=== PATIENT | female | born 1985 | race Caucasian/White ===

== ENCOUNTER 2018-06-25 14:05 | Emergency (ER) | payer OTHER, SELFPAY ==
[2018-06-25 14:12] VITALS: BP 113/71; PULSE 89; RESP 18; O2SAT 100
--- NOTE | 2018-06-25 14:21 | ED.NAVMDI ---
HPI - Nausea/Vomiting/Diarrhea <LATOSHA Mathew - Last Filed: 06/25/18 22:19> General Chief complaint: Nausea/Vomiting/Diarrhea Stated complaint: VOMITING/FEVER/7 WEEKS PREG Time Seen by Provider: 06/25/18 14:18 Source: patient Mode of arrival: ambulatory Limitations: no limitations History of Present Illness HPI Narrative: Patient presents with chief complaint of a fever 2 nights ago, nausea that comes and goes, vomiting twice yesterday, and lots of diarrhea today. She states she has had about 8 episodes of watery diarrhea. She complains of some abdominal pain and cramping. She denies any dysuria, urgency or frequency. She denies any vaginal spotting. She has yet to see an Ob this . She states her fever was 101 two nights ago. She has not taken anything to feel better at home. She denies any cough, congestion, or any other acute complaints. Related Data Home Medications Medication Instructions Recorded Confirmed PNV cmb#95-ferrous fumarate-FA 1 tab PO QPM 06/25/18 06/25/18 [] Allergies Allergy/AdvReac Type Severity Reaction Status Date / Time amoxicillin Allergy Verified 06/25/18 16:53 Review of Systems <CONRAD Mathew - Last Filed: 06/25/18 22:19> Review of Systems GENERAL: See HPI HEENT: Denies sinus pain, ear pain, sore throat, difficulty swallowing, dizziness. RESPIRATORY: Denies dyspnea, cough, wheezing, hemoptysis, sputum. CARDIOVASCULAR: Denies chest pain, palpitations, orthopnea, edema, GASTROINTESTINAL: See HPI : Denies dysuria, frequency, incontinence, hematuria, urinary retention. MUSCULOSKELETAL: denies weakness, joint pain, or bony pain SKIN: Denies rash, skin lesions, or other NEUROLOGIC: Denies weakness, headache, numbness, change in speech, confusion, seizures, incoordination. PSYCHIATRIC: No concerning psychosocial issues. 12 point review of systems is negative except for those stated above Exam <LATOSHA Mathew - Last Filed: 06/25/18 22:19> Narrative Exam Narrative: GENERAL: This is a well-nourished, well-developed patient, in no acute distress. HEAD: Atraumatic. Normocephalic. No temporal or scalp tenderness. EYES: Pupils equal round and reactive. Extraocular motions intact. No scleral icterus. No injection or drainage. ENT: Nose without bleeding, purulent drainage or septal hematoma. Throat without erythema, tonsillar hypertrophy or exudate. Uvula midline. Airway patent. NECK: Trachea midline. No JVD or lymphadenopathy. Supple, nontender, no meningeal signs. CARDIOVASCULAR: Regular rate and rhythm without murmurs, gallops, or rubs. RESPIRATORY: Clear to auscultation. Breath sounds equal bilaterally. No wheezes, rales, or rhonchi. No cough on exam. GASTROINTESTINAL: Abdomen soft, diffusely tender to palpation. No distention, no guarding noted. Active bowel sounds all 4 quadrants. EXTREMITIES: No clubbing, cyanosis, or edema. No joint tenderness, effusion, or edema noted. BACK: Nontender without deformity or crepitance. No flank tenderness. NEURO: AOx3. SKIN: No rash or erythema. Initial Vital Signs Initial Vital Signs: Vital Signs Pulse Rate 89 06/25/18 14:12 Respiratory Rate 18 06/25/18 14:12 Blood Pressure 113/71 06/25/18 14:12 Pulse Oximetry 100 06/25/18 14:12 <Bernabe Goff MD - Last Filed: 06/29/18 08:20> Initial Vital Signs Initial Vital Signs: Vital Signs Pulse Rate 89 06/25/18 14:12 Respiratory Rate 18 06/25/18 14:12 Blood Pressure 113/71 06/25/18 14:12 Pulse Oximetry 100 06/25/18 14:12 Course <LATOSHA Mathew - Last Filed: 06/25/18 22:19> Orders Ordered: Discontinued Medications Sodium Chloride (Normal Saline 0.9%) 1,000 mls @ 1,000 mls/hr IV BOLUS ONE Stop: 06/25/18 15:30 Last Infusion: 06/25/18 17:14 Dose: 0 mls/hr Admin: 06/25/18 14:54 Dose: 1,000 mls/hr Sodium Chloride (Normal Saline 0.9%) 1,000 mls @ 1,000 mls/hr IV BOLUS ONE Stop: 06/25/18 18:39 Last Infusion: 06/25/18 19:13 Dose: 0 mls/hr Admin: 06/25/18 17:44 Dose: 1,000 mls/hr Vital Signs - 8 hr 06/25/18 14:48 06/25/18 15:40 06/25/18 16:51 Temperature 98.0 F Pulse Rate 75 77 Respiratory Rate 14 15 Blood Pressure Blood Pressure [Right Arm] 98/58 L 108/57 L Pulse Oximetry 100 100 06/25/18 19:37 Temperature Pulse Rate 80 Respiratory Rate 16 Blood Pressure 108/56 L Blood Pressure [Right Arm] Pulse Oximetry 100 <Bernabe Goff MD - Last Filed: 06/29/18 08:20> Orders Ordered: Discontinued Medications Sodium Chloride (Normal Saline 0.9%) 1,000 mls @ 1,000 mls/hr IV BOLUS ONE Stop: 06/25/18 15:30 Last Infusion: 06/25/18 17:14 Dose: 0 mls/hr Admin: 06/25/18 14:54 Dose: 1,000 mls/hr Sodium Chloride (Normal Saline 0.9%) 1,000 mls @ 1,000 mls/hr IV BOLUS ONE Stop: 06/25/18 18:39 Last Infusion: 06/25/18 19:13 Dose: 0 mls/hr Admin: 06/25/18 17:44 Dose: 1,000 mls/hr Vital Signs - 8 hr 06/25/18 14:48 06/25/18 15:40 06/25/18 16:51 Temperature 98.0 F Pulse Rate 75 77 Respiratory Rate 14 15 Blood Pressure Blood Pressure [Right Arm] 98/58 L 108/57 L Pulse Oximetry 100 100 06/25/18 19:37 Temperature Pulse Rate 80 Respiratory Rate 16 Blood Pressure 108/56 L Blood Pressure [Right Arm] Pulse Oximetry 100 MDM - Nausea/Vomiting/Diarrhea <LATOSHA Mathew - Last Filed: 06/25/18 22:19> Lab Data Attestation: I reviewed the patient's lab results. Result diagrams: 06/25/18 14:40 06/25/18 14:40 Lab Results 06/25/18 06/25/18 06/25/18 Range/Units 14:17 14:17 14:40 WBC 6.8 (4.5-11.0) X10^3/uL RBC 4.72 (4.0-5.2) X10^6/uL Hgb 14.3 (12.0-16.0) g/dL Hct 42.9 (36-46) % MCV 91.0 (80-100) fL MCH 30.4 (26-34) PG MCHC 33.4 (30-36) % RDW 12.6 (11.6-14.8) % Plt Count 198 (150-400) X10^3/uL Neut % (Auto) 79.6 H (50-75) % Lymph % (Auto) 13.6 L (25-40) % Hall % (Auto) 6.1 (3-14) % Eos % (Auto) 0.5 L (2-4) % Baso % (Auto) 0.2 (0-2) % Neut # (Auto) 5400 (8996-0236) /uL Sodium (137-145) mmol/L Potassium (3.4-5.1) mmol/L Chloride (98-107) mmol/L Carbon Dioxide (22-32) mmol/L BUN (7-17) mg/dL Creatinine (0.52-1.04) mg/dL Estimated GFR (>60) mL/min BUN/Creatinine Ratio (6-22) Glucose (70-100) mg/dL Calcium (8.4-10.2) mg/dL Total Bilirubin (0.2-1.3) mg/dL AST (14-36) IU/L ALT (9-52) IU/L Alkaline Phosphatase (38-126) U/L Total Protein (6.3-8.2) g/dL Albumin (3.5-5.0) g/dL Globulin (1.7-4.1) g/dL Albumin/Globulin Ratio (1.0-2.8) Lipase (23-300) U/L HCG, Quant mIU/mL Urine Color Urine Appearance Urine pH (4.5-8.0) Ur Specific [place] (1.000-1.035) Urine Protein (Negative) Urine Glucose (UA) (Normal) g/dL Urine Ketones (NEGATIVE) Urine Occult Blood (Negative) Urine Nitrate (Negative) Urine Bilirubin (NEGATIVE) Urine Ictotest Negative (Negative) Urine Urobilinogen (0.2) E.U./dL Ur Leukocyte Esterase (NEGATIVE) Urine RBC None seen (0-5/HPF) Urine WBC 1-5/hpf (0-5/HPF) Ur Squamous Epith Cells 10-30 /hpf H Urine Bacteria Many (>30) H (None) Urine Mucus 1+ H (Negative) Ur Culture Indicated? Cult not indicated Micro UA Comment Not Reportable 06/25/18 06/25/18 Range/Units 14:40 Unknown WBC (4.5-11.0) X10^3/uL RBC (4.0-5.2) X10^6/uL Hgb (12.0-16.0) g/dL Hct (36-46) % MCV (80-100) fL MCH (26-34) PG MCHC (30-36) % RDW (11.6-14.8) % Plt Count (150-400) X10^3/uL Neut % (Auto) (50-75) % Lymph % (Auto) (25-40) % Hall % (Auto) (3-14) % Eos % (Auto) (2-4) % Baso % (Auto) (0-2) % Neut # (Auto) (0683-3292) /uL Sodium 138 (137-145) mmol/L Potassium 3.9 (3.4-5.1) mmol/L Chloride 105 (98-107) mmol/L Carbon Dioxide 23 (22-32) mmol/L BUN 9 (7-17) mg/dL Creatinine 0.80 (0.52-1.04) mg/dL Estimated GFR > 60.0 (>60) mL/min BUN/Creatinine Ratio 11.3 (6-22) Glucose 87 (70-100) mg/dL Calcium 8.6 (8.4-10.2) mg/dL Total Bilirubin 0.3 (0.2-1.3) mg/dL AST 20 (14-36) IU/L ALT 20 (9-52) IU/L Alkaline Phosphatase 63 (38-126) U/L Total Protein 7.2 (6.3-8.2) g/dL Albumin 4.3 (3.5-5.0) g/dL Globulin 2.9 (1.7-4.1) g/dL Albumin/Globulin Ratio 1.5 (1.0-2.8) Lipase 112 (23-300) U/L HCG, Quant 734.73 mIU/mL Urine Color Yellow Urine Appearance Clear Urine pH 5.0 (4.5-8.0) Ur Specific [place] >=1.030 H (1.000-1.035) Urine Protein Negative (Negative) Urine Glucose (UA) Negative (Normal) g/dL Urine Ketones 2+ H (NEGATIVE) Urine Occult Blood Trace-lysed (Negative) Urine Nitrate Negative (Negative) Urine Bilirubin Negative (NEGATIVE) Urine Ictotest (Negative) Urine Urobilinogen 0.2 (0.2) E.U./dL Ur Leukocyte Esterase Negative (NEGATIVE) Urine RBC 0-1/hpf (0-5/HPF) Urine WBC 0-1/hpf (0-5/HPF) Ur Squamous Epith Cells 1-5 /hpf D Urine Bacteria None seen (None) Urine Mucus (Negative) Ur Culture Indicated? Cult not indicated Micro UA Comment Not Reportable Imaging Data US: Radiologist's impression: [address] [address] Ultrasound Report Signed Patient: Elina Perea MR#: [id number] : 1985 Acct:[id number] Age/Sex: 32 / Date of Service: 06/25/18 Loc: ED Accession Number: [id number] Procedure: US OB <= 14 weeks fetus Ordering Provider: Elinor Chaudhry- PROCEDURE: US OB <= 14 WEEKS FETUS INDICATIONS: NAUSEA/VOMITING OUTSIDE/PRIOR DATING DATA: Last menstrual period (LMP): 05/05/18. LMP-based estimated date of delivery (SIMIN): 02/09/19. First dating scan (date and location): 06/25/18, [facility]. Estimated date of delivery (SIMIN) from first dating scan: 02/24/19. TECHNIQUE: Real-time scanning was performed of the fetus and maternal pelvic organs, with image documentation. Endovaginal scanning was also performed to better visualize the fetus and maternal ovaries. COMPARISON: None. FINDINGS: Embryo: A small cystic structure is present within the endometrium which measures 0.36 cm in diameter. This corresponds with a gestational age of 5 weeks, one day by mean gestational sac diameter. No pole is visualized. The endometrium measures 20.1 mm in diameter. Measurement variability in dating: +/- 4 weeks by LMP, +/- 7 days by mean sac diameter (use before 6 weeks gestation if crown-rump length not able to be measured), +/- 5 days by crown-rump length (up to 8 weeks 6 days gestation), +/- 7 days by crown-rump length (up to 13 weeks 6 days gestation). Maternal organs: Ovaries have a normal appearance. There is a right corpus luteal cyst. Limited images through the kidneys demonstrate no hydronephrosis. IMPRESSION: 1. Probable gestational sac within the uterine fundus. However, no pole is visualized. Please correlate with beta hCG. Ectopic cannot be excluded and close clinical surveillance is recommended. 2. Gestational age of 5 weeks one day by mean gestational sac diameter. Dictated by: Sera Salas M.D. on 06/25/2018 at 16:02 Approved by: Sera Salas M.D. on 06/25/2018 at 16:05 [facility] Narrative Medical decision making narrative: Patient presented with chief complaint of diarrhea fever 2 days ago and vomiting yesterday. A UA was completed. Given multiple squamous cells on UA, requested 2nd urinalysis from patient, which came back negative for any signs of infection. Basic lab work was drawn and a CBC and CMP came back within normal limits. Patient had no abdominal pain on exam. She had no abdominal pain unless she was having diarrhea. She was afebrile throughout her stay in the emergency department. A ultrasound was completed given her complaints of abdominal cramping and that showed a probable gestational sac in her uterus. She was given 2 L of IV fluid and felt better. A stool culture was completed per PCP follow-up. Discussed at length follow up with primary care for worsening or no improvement, return precautions of return of fever abdominal pain or acute concerns including vaginal bleeding. <Bernabe Goff MD - Last Filed: 06/29/18 08:20> Lab Data Lab Results 06/25/18 06/25/18 06/25/18 Range/Units 14:17 14:17 14:40 WBC 6.8 (4.5-11.0) X10^3/uL RBC 4.72 (4.0-5.2) X10^6/uL Hgb 14.3 (12.0-16.0) g/dL Hct 42.9 (36-46) % MCV 91.0 (80-100) fL MCH 30.4 (26-34) PG MCHC 33.4 (30-36) % RDW 12.6 (11.6-14.8) % Plt Count 198 (150-400) X10^3/uL Neut % (Auto) 79.6 H (50-75) % Lymph % (Auto) 13.6 L (25-40) % Hall % (Auto) 6.1 (3-14) % Eos % (Auto) 0.5 L (2-4) % Baso % (Auto) 0.2 (0-2) % Neut # (Auto) 5400 (1890-9580) /uL Sodium (137-145) mmol/L Potassium (3.4-5.1) mmol/L Chloride (98-107) mmol/L Carbon Dioxide (22-32) mmol/L BUN (7-17) mg/dL Creatinine (0.52-1.04) mg/dL Estimated GFR (>60) mL/min BUN/Creatinine Ratio (6-22) Glucose (70-100) mg/dL Calcium (8.4-10.2) mg/dL Total Bilirubin (0.2-1.3) mg/dL AST (14-36) IU/L ALT (9-52) IU/L Alkaline Phosphatase (38-126) U/L Total Protein (6.3-8.2) g/dL Albumin (3.5-5.0) g/dL Globulin (1.7-4.1) g/dL Albumin/Globulin Ratio (1.0-2.8) Lipase (23-300) U/L HCG, Quant mIU/mL Urine Color Urine Appearance Urine pH (4.5-8.0) Ur Specific [place] (1.000-1.035) Urine Protein (Negative) Urine Glucose (UA) (Normal) g/dL Urine Ketones (NEGATIVE) Urine Occult Blood (Negative) Urine Nitrate (Negative) Urine Bilirubin (NEGATIVE) Urine Ictotest Negative (Negative) Urine Urobilinogen (0.2) E.U./dL Ur Leukocyte Esterase (NEGATIVE) Urine RBC None seen (0-5/HPF) Urine WBC 1-5/hpf (0-5/HPF) Ur Squamous Epith Cells 10-30 /hpf H Urine Bacteria Many (>30) H (None) Urine Mucus 1+ H (Negative) Ur Culture Indicated? Cult not indicated Micro UA Comment Not Reportable 06/25/18 06/25/18 Range/Units 14:40 Unknown WBC (4.5-11.0) X10^3/uL RBC (4.0-5.2) X10^6/uL Hgb (12.0-16.0) g/dL Hct (36-46) % MCV (80-100) fL MCH (26-34) PG MCHC (30-36) % RDW (11.6-14.8) % Plt Count (150-400) X10^3/uL Neut % (Auto) (50-75) % Lymph % (Auto) (25-40) % Hall % (Auto) (3-14) % Eos % (Auto) (2-4) % Baso % (Auto) (0-2) % Neut # (Auto) (8237-0095) /uL Sodium 138 (137-145) mmol/L Potassium 3.9 (3.4-5.1) mmol/L Chloride 105 (98-107) mmol/L Carbon Dioxide 23 (22-32) mmol/L BUN 9 (7-17) mg/dL Creatinine 0.80 (0.52-1.04) mg/dL Estimated GFR > 60.0 (>60) mL/min BUN/Creatinine Ratio 11.3 (6-22) Glucose 87 (70-100) mg/dL Calcium 8.6 (8.4-10.2) mg/dL Total Bilirubin 0.3 (0.2-1.3) mg/dL AST 20 (14-36) IU/L ALT 20 (9-52) IU/L Alkaline Phosphatase 63 (38-126) U/L Total Protein 7.2 (6.3-8.2) g/dL Albumin 4.3 (3.5-5.0) g/dL Globulin 2.9 (1.7-4.1) g/dL Albumin/Globulin Ratio 1.5 (1.0-2.8) Lipase 112 (23-300) U/L HCG, Quant 734.73 mIU/mL Urine Color Yellow Urine Appearance Clear Urine pH 5.0 (4.5-8.0) Ur Specific [place] >=1.030 H (1.000-1.035) Urine Protein Negative (Negative) Urine Glucose (UA) Negative (Normal) g/dL Urine Ketones 2+ H (NEGATIVE) Urine Occult Blood Trace-lysed (Negative) Urine Nitrate Negative (Negative) Urine Bilirubin Negative (NEGATIVE) Urine Ictotest (Negative) Urine Urobilinogen 0.2 (0.2) E.U./dL Ur Leukocyte Esterase Negative (NEGATIVE) Urine RBC 0-1/hpf (0-5/HPF) Urine WBC 0-1/hpf (0-5/HPF) Ur Squamous Epith Cells 1-5 /hpf D Urine Bacteria None seen (None) Urine Mucus (Negative) Ur Culture Indicated? Cult not indicated Micro UA Comment Not Reportable Discharge Plan Departure Patient Disposition: Home, Self-Care Clinical Impression: Diarrhea Discharge Date/Time: 06/25/18 19:38 Interventions: ED Discharge Assessment Last Done: 06/25/18 19:37 Instructions: DI for Diarrhea and Traveler's Diarrhea -- Adult, DI for Nausea -- Adult Activity Restrictions/Additional Instructions: Your lab work came back today normal. Her ultrasound showed a probable gestational sac of 5 weeks in the uterus. Monitor for constant abdominal pain or vaginal bleeding. Come back to the emergency department if you have any concerns for an ectopic . Please push fluids and rest. I have given you a work note that you cannot go to work if you have any active vomiting or diarrhea. Prescriptions: No Action PNV cmb#95-ferrous fumarate-FA [] 28 mg iron- 800 mcg Tablet 1 tab PO QPM RF: 0 Referrals: [employer] [facility] [Provider Group] <Bernabe Goff MD - Last Filed: 06/29/18 08:20> Sign Out Provider Sign Out Attestation: The PA/BROADCAST ENGINEER functioned independently for the care of this pt, I was available, but not asked to participate in care. I am unable to determine appropriateness of management without personally examining the pt.
--- NOTE | 2018-06-25 14:31 | DI.US.S_ITS ---
PROCEDURE: US OB <= 14 WEEKS FETUS INDICATIONS: NAUSEA/VOMITING OUTSIDE/PRIOR DATING DATA: Last menstrual period (LMP): 05/05/18. LMP-based estimated date of delivery (SIMIN): 02/09/19. First dating scan (date and location): 06/25/18, [facility]. Estimated date of delivery (SIMIN) from first dating scan: 02/24/19. TECHNIQUE: Real-time scanning was performed of the fetus and maternal pelvic organs, with image documentation. Endovaginal scanning was also performed to better visualize the fetus and maternal ovaries. COMPARISON: None. FINDINGS: Embryo: A small cystic structure is present within the endometrium which measures 0.36 cm in diameter. This corresponds with a gestational age of 5 weeks, one day by mean gestational sac diameter. No pole is visualized. The endometrium measures 20.1 mm in diameter. Measurement variability in dating: +/- 4 weeks by LMP, +/- 7 days by mean sac diameter (use before 6 weeks gestation if crown-rump length not able to be measured), +/- 5 days by crown-rump length (up to 8 weeks 6 days gestation), +/- 7 days by crown-rump length (up to 13 weeks 6 days gestation). Maternal organs: Ovaries have a normal appearance. There is a right corpus luteal cyst. Limited images through the kidneys demonstrate no hydronephrosis. IMPRESSION: 1. Probable gestational sac within the uterine fundus. However, no pole is visualized. Please correlate with beta hCG. Ectopic cannot be excluded and close clinical surveillance is recommended. 2. Gestational age of 5 weeks one day by mean gestational sac diameter. Dictated by: Sera Salas M.D. on 06/25/2018 at 16:02 Approved by: Sera Salas M.D. on 06/25/2018 at 16:05
[2018-06-25 14:35] LABS: RBC Urine None Seen (0-5/HPF)
--- NOTE | 2018-06-25 14:35 | ED_ITS ---
HPI - Nausea/Vomiting/Diarrhea <LATOSHA Mathew - Last Filed: 06/25/18 22:19> General Chief complaint: Nausea/Vomiting/Diarrhea Stated complaint: VOMITING/FEVER/7 WEEKS PREG Time Seen by Provider: 06/25/18 14:18 Source: patient Mode of arrival: ambulatory Limitations: no limitations History of Present Illness HPI Narrative: Patient presents with chief complaint of a fever 2 nights ago, nausea that comes and goes, vomiting twice yesterday, and lots of diarrhea today. She states she has had about 8 episodes of watery diarrhea. She complains of some abdominal pain and cramping. She denies any dysuria, urgency or frequency. She denies any vaginal spotting. She has yet to see an Ob this . She states her fever was 101 two nights ago. She has not taken anything to feel better at home. She denies any cough, congestion, or any other acute complaints. Related Data Home Medications Medication Instructions Recorded Confirmed PNV cmb#95-ferrous fumarate-FA 1 tab PO QPM 06/25/18 06/25/18 [] Allergies Allergy/AdvReac Type Severity Reaction Status Date / Time amoxicillin Allergy Verified 06/25/18 16:53 Review of Systems <CONRAD Mathew - Last Filed: 06/25/18 22:19> Review of Systems GENERAL: See HPI HEENT: Denies sinus pain, ear pain, sore throat, difficulty swallowing, dizziness. RESPIRATORY: Denies dyspnea, cough, wheezing, hemoptysis, sputum. CARDIOVASCULAR: Denies chest pain, palpitations, orthopnea, edema, GASTROINTESTINAL: See HPI : Denies dysuria, frequency, incontinence, hematuria, urinary retention. MUSCULOSKELETAL: denies weakness, joint pain, or bony pain SKIN: Denies rash, skin lesions, or other NEUROLOGIC: Denies weakness, headache, numbness, change in speech, confusion, seizures, incoordination. PSYCHIATRIC: No concerning psychosocial issues. 12 point review of systems is negative except for those stated above Exam <LATOSHA Mathew - Last Filed: 06/25/18 22:19> Narrative Exam Narrative: GENERAL: This is a well-nourished, well-developed patient, in no acute distress. HEAD: Atraumatic. Normocephalic. No temporal or scalp tenderness. EYES: Pupils equal round and reactive. Extraocular motions intact. No scleral icterus. No injection or drainage. ENT: Nose without bleeding, purulent drainage or septal hematoma. Throat without erythema, tonsillar hypertrophy or exudate. Uvula midline. Airway patent. NECK: Trachea midline. No JVD or lymphadenopathy. Supple, nontender, no meningeal signs. CARDIOVASCULAR: Regular rate and rhythm without murmurs, gallops, or rubs. RESPIRATORY: Clear to auscultation. Breath sounds equal bilaterally. No wheezes , rales, or rhonchi. No cough on exam. GASTROINTESTINAL: Abdomen soft, diffusely tender to palpation. No distention, no guarding noted. Active bowel sounds all 4 quadrants. EXTREMITIES: No clubbing, cyanosis, or edema. No joint tenderness, effusion, or edema noted. BACK: Nontender without deformity or crepitance. No flank tenderness. NEURO: AOx3. SKIN: No rash or erythema. Initial Vital Signs Initial Vital Signs: Vital Signs Pulse Rate 89 06/25/18 14:12 Respiratory Rate 18 06/25/18 14:12 Blood Pressure 113/71 06/25/18 14:12 Pulse Oximetry 100 06/25/18 14:12 <Bernabe Goff MD - Last Filed: 06/29/18 08:20> Initial Vital Signs Initial Vital Signs: Vital Signs Pulse Rate 89 06/25/18 14:12 Respiratory Rate 18 06/25/18 14:12 Blood Pressure 113/71 06/25/18 14:12 Pulse Oximetry 100 06/25/18 14:12 Course <LATOSHA Mathew - Last Filed: 06/25/18 22:19> Orders Ordered: Discontinued Medications Sodium Chloride (Normal Saline 0.9%) 1,000 mls @ 1,000 mls/hr IV BOLUS ONE Stop: 06/25/18 15:30 Last Infusion: 06/25/18 17:14 Dose: 0 mls/hr Admin: 06/25/18 14:54 Dose: 1,000 mls/hr Sodium Chloride (Normal Saline 0.9%) 1,000 mls @ 1,000 mls/hr IV BOLUS ONE Stop: 06/25/18 18:39 Last Infusion: 06/25/18 19:13 Dose: 0 mls/hr Admin: 06/25/18 17:44 Dose: 1,000 mls/hr Vital Signs - 8 hr 06/25/18 14:48 06/25/18 15:40 06/25/18 16:51 Temperature 98.0 F Pulse Rate 75 77 Respiratory Rate 14 15 Blood Pressure Blood Pressure [Right Arm] 98/58 L 108/57 L Pulse Oximetry 100 100 06/25/18 19:37 Temperature Pulse Rate 80 Respiratory Rate 16 Blood Pressure 108/56 L Blood Pressure [Right Arm] Pulse Oximetry 100 <Bernabe Goff MD - Last Filed: 06/29/18 08:20> Orders Ordered: Discontinued Medications Sodium Chloride (Normal Saline 0.9%) 1,000 mls @ 1,000 mls/hr IV BOLUS ONE Stop: 06/25/18 15:30 Last Infusion: 06/25/18 17:14 Dose: 0 mls/hr Admin: 06/25/18 14:54 Dose: 1,000 mls/hr Sodium Chloride (Normal Saline 0.9%) 1,000 mls @ 1,000 mls/hr IV BOLUS ONE Stop: 06/25/18 18:39 Last Infusion: 06/25/18 19:13 Dose: 0 mls/hr Admin: 06/25/18 17:44 Dose: 1,000 mls/hr Vital Signs - 8 hr 06/25/18 14:48 06/25/18 15:40 06/25/18 16:51 Temperature 98.0 F Pulse Rate 75 77 Respiratory Rate 14 15 Blood Pressure Blood Pressure [Right Arm] 98/58 L 108/57 L Pulse Oximetry 100 100 06/25/18 19:37 Temperature Pulse Rate 80 Respiratory Rate 16 Blood Pressure 108/56 L Blood Pressure [Right Arm] Pulse Oximetry 100 MDM - Nausea/Vomiting/Diarrhea <LATOSHA Mathew - Last Filed: 06/25/18 22:19> Lab Data Attestation: I reviewed the patient's lab results. Result diagrams: 06/25/18 14:40 06/25/18 14:40 Lab Results 06/25/18 06/25/18 06/25/18 Range/Units 14:17 14:17 14:40 WBC 6.8 (4.5-11.0) X10^3/uL RBC 4.72 (4.0-5.2) X10^6/uL Hgb 14.3 (12.0-16.0) g/dL Hct 42.9 (36-46) % MCV 91.0 (80-100) fL MCH 30.4 (26-34) PG MCHC 33.4 (30-36) % RDW 12.6 (11.6-14.8) % Plt Count 198 (150-400) X10^3/uL Neut % (Auto) 79.6 H (50-75) % Lymph % (Auto) 13.6 L (25-40) % [place] % (Auto) 6.1 (3-14) % Eos % (Auto) 0.5 L (2-4) % Baso % (Auto) 0.2 (0-2) % Neut # (Auto) 5400 (2779-3739) /uL Sodium (137-145) mmol/L Potassium (3.4-5.1) mmol/L Chloride (98-107) mmol/L Carbon Dioxide (22-32) mmol/L BUN (7-17) mg/dL Creatinine (0.52-1.04) mg/dL Estimated GFR (>60) mL/min BUN/Creatinine Ratio (6-22) Glucose (70-100) mg/dL Calcium (8.4-10.2) mg/dL Total Bilirubin (0.2-1.3) mg/dL AST (14-36) IU/L ALT (9-52) IU/L Alkaline Phosphatase (38-126) U/L Total Protein (6.3-8.2) g/dL Albumin (3.5-5.0) g/dL Globulin (1.7-4.1) g/dL Albumin/Globulin Ratio (1.0-2.8) Lipase (23-300) U/L HCG, Quant mIU/mL Urine Color Urine Appearance Urine pH (4.5-8.0) Ur Specific [place] (1.000-1.035) Urine Protein (Negative) Urine Glucose (UA) (Normal) g/dL Urine Ketones (NEGATIVE) Urine Occult Blood (Negative) Urine Nitrate (Negative) Urine Bilirubin (NEGATIVE) Urine Ictotest Negative (Negative) Urine Urobilinogen (0.2) E.U./dL Ur Leukocyte Esterase (NEGATIVE) Urine RBC None seen (0-5/HPF) Urine WBC 1-5/hpf (0-5/HPF) Ur Squamous Epith Cells 10-30 /hpf H Urine Bacteria Many (>30) H (None) Urine Mucus 1+ H (Negative) Ur Culture Indicated? Cult not indicated Micro UA Comment Not Reportable 06/25/18 06/25/18 Range/Units 14:40 Unknown WBC (4.5-11.0) X10^3/uL RBC (4.0-5.2) X10^6/uL Hgb (12.0-16.0) g/dL Hct (36-46) % MCV (80-100) fL MCH (26-34) PG MCHC (30-36) % RDW (11.6-14.8) % Plt Count (150-400) X10^3/uL Neut % (Auto) (50-75) % Lymph % (Auto) (25-40) % [place] % (Auto) (3-14) % Eos % (Auto) (2-4) % Baso % (Auto) (0-2) % Neut # (Auto) (7969-4421) /uL Sodium 138 (137-145) mmol/L Potassium 3.9 (3.4-5.1) mmol/L Chloride 105 (98-107) mmol/L Carbon Dioxide 23 (22-32) mmol/L BUN 9 (7-17) mg/dL Creatinine 0.80 (0.52-1.04) mg/dL Estimated GFR > 60.0 (>60) mL/min BUN/Creatinine Ratio 11.3 (6-22) Glucose 87 (70-100) mg/dL Calcium 8.6 (8.4-10.2) mg/dL Total Bilirubin 0.3 (0.2-1.3) mg/dL AST 20 (14-36) IU/L ALT 20 (9-52) IU/L Alkaline Phosphatase 63 (38-126) U/L Total Protein 7.2 (6.3-8.2) g/dL Albumin 4.3 (3.5-5.0) g/dL Globulin 2.9 (1.7-4.1) g/dL Albumin/Globulin Ratio 1.5 (1.0-2.8) Lipase 112 (23-300) U/L HCG, Quant 734.73 mIU/mL Urine Color Yellow Urine Appearance Clear Urine pH 5.0 (4.5-8.0) Ur Specific [place] >=1.030 H (1.000-1.035) Urine Protein Negative (Negative) Urine Glucose (UA) Negative (Normal) g/dL Urine Ketones 2+ H (NEGATIVE) Urine Occult Blood Trace-lysed (Negative) Urine Nitrate Negative (Negative) Urine Bilirubin Negative (NEGATIVE) Urine Ictotest (Negative) Urine Urobilinogen 0.2 (0.2) E.U./dL Ur Leukocyte Esterase Negative (NEGATIVE) Urine RBC 0-1/hpf (0-5/HPF) Urine WBC 0-1/hpf (0-5/HPF) Ur Squamous Epith Cells 1-5 /hpf D Urine Bacteria None seen (None) Urine Mucus (Negative) Ur Culture Indicated? Cult not indicated Micro UA Comment Not Reportable Imaging Data US: Radiologist's impression: [address] [address] Ultrasound Report Signed Patient: Elina Perea MR#: [id number] : 1985 Acct:[id number] Age/Sex: 32 / Date of Service: 06/25/18 Loc: ED Accession Number: [id number] Procedure: US OB <= 14 weeks fetus Ordering Provider: Elinor Chaudhry- PROCEDURE: US OB <= 14 WEEKS FETUS INDICATIONS: NAUSEA/VOMITING OUTSIDE/PRIOR DATING DATA: Last menstrual period (LMP): 05/05/18. LMP-based estimated date of delivery (SIMIN): 02/09/19. First dating scan (date and location): 06/25/18, [facility]. Estimated date of delivery (SIMIN) from first dating scan: 02/24/19. TECHNIQUE: Real-time scanning was performed of the fetus and maternal pelvic organs, with image documentation. Endovaginal scanning was also performed to better visualize the fetus and maternal ovaries. COMPARISON: None. FINDINGS: Embryo: A small cystic structure is present within the endometrium which measures 0.36 cm in diameter. This corresponds with a gestational age of 5 weeks, one day by mean gestational sac diameter. No pole is visualized. The endometrium measures 20.1 mm in diameter. Measurement variability in dating: +/- 4 weeks by LMP, +/- 7 days by mean sac diameter (use before 6 weeks gestation if crown-rump length not able to be measured), +/ - 5 days by crown-rump length (up to 8 weeks 6 days gestation), +/- 7 days by crown-rump length (up to 13 weeks 6 days gestation). Maternal organs: Ovaries have a normal appearance. There is a right corpus luteal cyst. Limited images through the kidneys demonstrate no hydronephrosis. IMPRESSION: 1. Probable gestational sac within the uterine fundus. However, no pole is visualized. Please correlate with beta hCG. Ectopic cannot be excluded and close clinical surveillance is recommended. 2. Gestational age of 5 weeks one day by mean gestational sac diameter. Dictated by: Sera Salas M.D. on 06/25/2018 at 16:02 Approved by: Sera Salas M.D. on 06/25/2018 at 16:05 [facility] Narrative Medical decision making narrative: Patient presented with chief complaint of diarrhea fever 2 days ago and vomiting yesterday. A UA was completed. Given multiple squamous cells on UA, requested 2nd urinalysis from patient, which came back negative for any signs of infection. Basic lab work was drawn and a CBC and CMP came back within normal limits. Patient had no abdominal pain on exam. She had no abdominal pain unless she was having diarrhea. She was afebrile throughout her stay in the emergency department. A ultrasound was completed given her complaints of abdominal cramping and that showed a probable gestational sac in her uterus. She was given 2 L of IV fluid and felt better. A stool culture was completed per PCP follow-up. Discussed at length follow up with primary care for worsening or no improvement, return precautions of return of fever abdominal pain or acute concerns including vaginal bleeding. <Bernabe Goff MD - Last Filed: 06/29/18 08:20> Lab Data Lab Results 06/25/18 06/25/18 06/25/18 Range/Units 14:17 14:17 14:40 WBC 6.8 (4.5-11.0) X10^3/uL RBC 4.72 (4.0-5.2) X10^6/uL Hgb 14.3 (12.0-16.0) g/dL Hct 42.9 (36-46) % MCV 91.0 (80-100) fL MCH 30.4 (26-34) PG MCHC 33.4 (30-36) % RDW 12.6 (11.6-14.8) % Plt Count 198 (150-400) X10^3/uL Neut % (Auto) 79.6 H (50-75) % Lymph % (Auto) 13.6 L (25-40) % [place] % (Auto) 6.1 (3-14) % Eos % (Auto) 0.5 L (2-4) % Baso % (Auto) 0.2 (0-2) % Neut # (Auto) 5400 (0773-1667) /uL Sodium (137-145) mmol/L Potassium (3.4-5.1) mmol/L Chloride (98-107) mmol/L Carbon Dioxide (22-32) mmol/L BUN (7-17) mg/dL Creatinine (0.52-1.04) mg/dL Estimated GFR (>60) mL/min BUN/Creatinine Ratio (6-22) Glucose (70-100) mg/dL Calcium (8.4-10.2) mg/dL Total Bilirubin (0.2-1.3) mg/dL AST (14-36) IU/L ALT (9-52) IU/L Alkaline Phosphatase (38-126) U/L Total Protein (6.3-8.2) g/dL Albumin (3.5-5.0) g/dL Globulin (1.7-4.1) g/dL Albumin/Globulin Ratio (1.0-2.8) Lipase (23-300) U/L HCG, Quant mIU/mL Urine Color Urine Appearance Urine pH (4.5-8.0) Ur Specific [place] (1.000-1.035) Urine Protein (Negative) Urine Glucose (UA) (Normal) g/dL Urine Ketones (NEGATIVE) Urine Occult Blood (Negative) Urine Nitrate (Negative) Urine Bilirubin (NEGATIVE) Urine Ictotest Negative (Negative) Urine Urobilinogen (0.2) E.U./dL Ur Leukocyte Esterase (NEGATIVE) Urine RBC None seen (0-5/HPF) Urine WBC 1-5/hpf (0-5/HPF) Ur Squamous Epith Cells 10-30 /hpf H Urine Bacteria Many (>30) H (None) Urine Mucus 1+ H (Negative) Ur Culture Indicated? Cult not indicated Micro UA Comment Not Reportable 06/25/18 06/25/18 Range/Units 14:40 Unknown WBC (4.5-11.0) X10^3/uL RBC (4.0-5.2) X10^6/uL Hgb (12.0-16.0) g/dL Hct (36-46) % MCV (80-100) fL MCH (26-34) PG MCHC (30-36) % RDW (11.6-14.8) % Plt Count (150-400) X10^3/uL Neut % (Auto) (50-75) % Lymph % (Auto) (25-40) % [place] % (Auto) (3-14) % Eos % (Auto) (2-4) % Baso % (Auto) (0-2) % Neut # (Auto) (8257-3442) /uL Sodium 138 (137-145) mmol/L Potassium 3.9 (3.4-5.1) mmol/L Chloride 105 (98-107) mmol/L Carbon Dioxide 23 (22-32) mmol/L BUN 9 (7-17) mg/dL Creatinine 0.80 (0.52-1.04) mg/dL Estimated GFR > 60.0 (>60) mL/min BUN/Creatinine Ratio 11.3 (6-22) Glucose 87 (70-100) mg/dL Calcium 8.6 (8.4-10.2) mg/dL Total Bilirubin 0.3 (0.2-1.3) mg/dL AST 20 (14-36) IU/L ALT 20 (9-52) IU/L Alkaline Phosphatase 63 (38-126) U/L Total Protein 7.2 (6.3-8.2) g/dL Albumin 4.3 (3.5-5.0) g/dL Globulin 2.9 (1.7-4.1) g/dL Albumin/Globulin Ratio 1.5 (1.0-2.8) Lipase 112 (23-300) U/L HCG, Quant 734.73 mIU/mL Urine Color Yellow Urine Appearance Clear Urine pH 5.0 (4.5-8.0) Ur Specific [place] >=1.030 H (1.000-1.035) Urine Protein Negative (Negative) Urine Glucose (UA) Negative (Normal) g/dL Urine Ketones 2+ H (NEGATIVE) Urine Occult Blood Trace-lysed (Negative) Urine Nitrate Negative (Negative) Urine Bilirubin Negative (NEGATIVE) Urine Ictotest (Negative) Urine Urobilinogen 0.2 (0.2) E.U./dL Ur Leukocyte Esterase Negative (NEGATIVE) Urine RBC 0-1/hpf (0-5/HPF) Urine WBC 0-1/hpf (0-5/HPF) Ur Squamous Epith Cells 1-5 /hpf D Urine Bacteria None seen (None) Urine Mucus (Negative) Ur Culture Indicated? Cult not indicated Micro UA Comment Not Reportable Discharge Plan Departure Patient Disposition: Home, Self-Care Clinical Impression: Diarrhea Discharge Date/Time: 06/25/18 19:38 Interventions: ED Discharge Assessment Last Done: 06/25/18 19:37 Instructions: DI for Diarrhea and Traveler's Diarrhea -- Adult, DI for Nausea - - Adult Activity Restrictions/Additional Instructions: Your lab work came back today normal. Her ultrasound showed a probable gestational sac of 5 weeks in the uterus. Monitor for constant abdominal pain or vaginal bleeding. Come back to the emergency department if you have any concerns for an ectopic . Please push fluids and rest. I have given you a work note that you cannot go to work if you have any active vomiting or diarrhea. Prescriptions: No Action PNV cmb#95-ferrous fumarate-FA [] 28 mg iron- 800 mcg Tablet 1 tab PO QPM RF: 0 Referrals: [employer] [facility] [Provider Group] <Bernabe Goff MD - Last Filed: 06/29/18 08:20> Sign Out Provider Sign Out Attestation: The PA/VOLUNTEER SERVICES SUPERVISOR functioned independently for the care of this pt, I was available, but not asked to participate in care. I am unable to determine appropriateness of management without personally examining the pt.
[2018-06-25 14:48] VITALS: TEMP 36.7
[2018-06-25 14:48] LABS: Add Manual Diff / Slide Review NO; Basophils Percent Auto 0.2 % (0-2); Eosinophils Percent Auto 0.5 % (2-4); Hematocrit 42.9 % (36-46); Hemoglobin 14.3 g/dL (12.0-16.0); Lymphocytes Percent Auto 13.6 % (25-40); Mean Corpuscular HGB Conc 33.4 % (30-36); Mean Corpuscular Hemoglobin 30.4 PG (26-34); Monocytes Percent Auto 6.1 % (3-14); Neutrophils Absolute Auto 5400 /uL (3000-5900); Neutrophils Percent Auto 79.6 % (50-75); Platelet Count 198 X10^3/uL (150-400); Red Blood Cell Count 4.72 X10^6/uL (4.0-5.2); Red Cell Distribution Width 12.6 % (11.6-14.8); White Blood Cell Count 6.8 X10^3/uL (4.5-11.0)
[2018-06-25] MEDS: SODIUM CHLORIDE 0.9% 1,000 ML 1000 ML IV ×2 (14:54→17:44)
[2018-06-25 14:57] LABS: Bacteria Urine Many (>30); Squamous Epithelial Cell Urine 10-30 /HPF; WBC Urine 1-5/HPF (0-5/HPF)
[2018-06-25 14:58] LABS: Culture Indicated Urine Cult Not Indicated; Mucus Urine 1+ (Negative)
[2018-06-25 14:59] LABS: Alanine Aminotransferase 20 IU/L (9-52); Albumin 4.3 g/dL (3.5-5.0); Albumin Globulin Ratio 1.5 (1.0-2.8); Alkaline Phosphatase 63 U/L (38-126); Aspartate Aminotransferase 20 IU/L (14-36); BUN Creatinine Ratio 11.3 (6-22); Bilirubin Total 0.3 mg/dL (0.2-1.3); Blood Urea Nitrogen 9 mg/dL (7-17); Calcium 8.6 mg/dL (8.4-10.2); Carbon Dioxide 23 mmol/L (22-32); Chloride 105 mmol/L (98-107); Estimated Glomerular Filt Rate > 60.0 mL/min (>60); Globulin 2.9 g/dL (1.7-4.1); Glucose 87 mg/dL (70-100); HEMOLYSIS < 15 (0-50); Lipase 112 U/L (23-300); Potassium 3.9 mmol/L (3.4-5.1); Sodium 138 mmol/L (137-145); Total Protein 7.2 g/dL (6.3-8.2)
[2018-06-25 15:00] LABS: Ictotest Urine Negative (Negative)
[2018-06-25 15:16] LABS: HCG Quantitative /Beta subunit 734.73 mIU/mL
[2018-06-25 15:40] VITALS: BP 98/58; PULSE 75; RESP 14; O2SAT 100
[2018-06-25 15:53] LABS: Bacteria Urine None Seen
[2018-06-25 15:54] LABS: Appearance Urine UA CLEAR; Bilirubin Urine UA NEGATIVE (NEGATIVE); Color Urine UA YELLOW; Glucose Urine UA NEGATIVE (Normal); Ketones Urine UA 2+ (NEGATIVE); Leukocyte Esterase Urine UA NEGATIVE (NEGATIVE); Nitrite Urine UA Negative (Negative); Occult Blood Urine UA TRACE-LYSED (Negative); Protein Urine UA NEGATIVE (Negative); Specific Gravity Urine UA >=1.030 (1.000-1.035); Urobilinogen Urine UA 0.2 E.U./dL (0.2)
[2018-06-25 16:11] LABS: Culture Indicated Urine Cult Not Indicated; RBC Urine 0-1/HPF (0-5/HPF); Squamous Epithelial Cell Urine 1-5 /HPF; WBC Urine 0-1/HPF (0-5/HPF)
[2018-06-25 16:51] VITALS: BP 108/57; PULSE 77; RESP 15; O2SAT 100
[2018-06-25 19:37] VITALS: BP 108/56; PULSE 80; RESP 16; O2SAT 100
--- NOTE | 2018-06-29 12:23 | PC.NURSE ---
f/u phone call: Called and left message for patient. Encouraged to call / return for any concerns.
== END 2018-06-25 19:38 | disposition home or self-care (01) ==
PROVIDERS: Emergency Provider Nurse Practitioner Family
DX: O26.891 Other specified pregnancy related conditions, first trimester (principal); R19.7 Diarrhea, unspecified; Z3A.01 Less than 8 weeks gestation of pregnancy
CPT/HCPCS: 36591; 76801; 76817; 80053; 81001; 81003; 81015; 81025; 83690; 84702; 85025; 87015; 87045; 87427; 87899; 96360; 96361; 99283; 99284

== ENCOUNTER → 2020-03-04 08:19 | Outpatient (CLI) | payer OTHER, SELFPAY ==
[2020-03-04 10:07] LABS: Hematocrit 35.2 % (36-46); Hemoglobin 12.3 g/dL (12.0-16.0)
[2020-03-04 10:22] LABS: GTT (PREG) 1 Hour PP 50gm Dose 108 mg/dL (76-139)
== END ==
PROVIDERS: PCP Family Medicine; Referring Provider Family Medicine; Visit Provider Family Medicine
DX: Z34.90 Encounter for supervision of normal pregnancy, unspecified, unspecified trimester (principal); Z3A.25 25 weeks gestation of pregnancy
CPT/HCPCS: 36415; 82950; 85014; 85018

== ENCOUNTER → 2020-04-05 16:05 | Outpatient (CLI) | payer OTHER, SELFPAY ==
--- NOTE | 2020-04-05 16:06 | DI.US.S_ITS ---
PROCEDURE: US OB LIMITED INDICATIONS: FOLLOW GROWTH, 20 WK US ON [facility] OUTSIDE/PRIOR DATING DATA: Last menstrual period (LMP): 08/30/2019. LMP-based estimated date of delivery (SIMIN): 06/05/2020. First dating scan (date and location): 01/19/2020 [facility]. Estimated date of delivery (SIMIN) from first dating scan: 06/03/2020. TECHNIQUE: Real-time scanning was performed of the fetus, with image documentation and biometric measurements. Endovaginal scanning: Not performed COMPARISON: [facility], , US OB > 14 WEEKS, 01/19/2020, 13:45. FINDINGS: General: A single living intrauterine gestation is present. Presentation: Transverse. Head maternal right. Placenta: Placental position is anterior, without previa. Amniotic fluid index: 20.5 cm, normal range is 5-24 cm. heart rate: 130 beats per minute. Maternal cervical canal: Estimated 5.9 cm long. Normal lower limit is 2.5 cm. biometrics: Biparietal diameter: 7.8 cm. 31 weeks 2 days. Head circumference: 28.8 cm. 31 weeks 5 days. Abdominal circumference: 28.9 cm. 32 weeks 6 days. Femur length: 6.1 cm. 31 weeks 5 days. Estimated gestational age from LMP: 31 weeks 2 days. Composite gestational age from present scan: 31 weeks 6 days Estimated weight and percentile: 1940 g. 72nd percentile. Measurement variability for biometric dating: +/- 7 days from 14 weeks to 15 weeks 6 days gestation, +/- 10 days from 16 weeks to 21 weeks 6 days gestation, +/- 2 weeks from 22 weeks to 27 weeks 6 days gestation, +/- 3 weeks for 28 weeks gestation or later. weight reference: 4500 g or EFW >90/95% is considered macrosomia or large for gestational age. EFW <10% is small for gestational age. EFW 5% or less is considered intra-uterine growth restriction. IMPRESSION: 1. [place] living intrauterine at 31 weeks 6/7 days based on today's ultrasound. This is concordant with the prior dating. There is expected interval growth. Fetus is in the 72nd percentile for weight. Fetus is in the transverse position. 2. Normal placenta and amniotic fluid. Dictated by: Moy Saha M.D. on 04/06/2020 at 13:18 Approved by: Moy Saha M.D. on 04/06/2020 at 13:22
== END ==
PROVIDERS: PCP Family Medicine; Referring Provider Family Medicine; Visit Provider Family Medicine
DX: Z36.2 Encounter for other antenatal screening follow-up (principal); Z3A.31 31 weeks gestation of pregnancy
CPT/HCPCS: 76815

== ENCOUNTER → 2020-05-09 09:58 | Outpatient (CLI) | payer OTHER, SELFPAY ==
[2020-05-10 15:10] LABS: Strep Grp B PCR NEG for Grp B Strep
== END ==
PROVIDERS: PCP Family Medicine; Visit Provider Family Medicine
DX: Z34.90 Encounter for supervision of normal pregnancy, unspecified, unspecified trimester (principal); Z3A.36 36 weeks gestation of pregnancy
CPT/HCPCS: 87653

== ENCOUNTER → 2020-06-12 09:07 | Outpatient (CLI) | payer OTHER, SELFPAY ==
[2020-06-14 06:56] LABS: COVID19 Sendout Not Detected (Not Detect)
== END ==
PROVIDERS: PCP Family Medicine; Visit Provider Nurse Practitioner
DX: Z11.59 Encounter for screening for other viral diseases (principal)
CPT/HCPCS: 87635

== ENCOUNTER 2020-06-12 09:15 | Outpatient (CLI) | payer OTHER, SELFPAY ==
--- NOTE | 2020-06-12 10:09 | P.TNLD_ITS ---
Visit Information Visit Information Date of evaluation: 06/12/20 Primary OB Provider: Serenity Becerra Reason for Evaluation: Yes non-stress test non-stress test reason: other (Postdates) Vital Signs Vital Signs: Temperature 36.4? blood pressure 118/74 heart rate 80 PFSH Medical History Back pain at L4-L5 level (Acute) Eczema (Acute) GERD (gastroesophageal reflux disease) (Acute) HPV (human papilloma virus) anogenital infection (Acute) Impingement syndrome of both shoulders (Acute) Muscle strain of left hip (Acute) Neoplasm (Acute) (spontaneous vaginal delivery) (Acute) Surgical History [place] teeth removed (Acute) Family History Father Aortic valve disorder Cardiovascular disease Hypertension Myocardial infarction Stroke Grandmother Diabetes mellitus Breast cancer Family/Other Breast cancer Grandfather Alcoholic Pacemaker Arrhythmia Grandmother Dementia Social History marital status: number of children: 1 household members: spouse and children education level: college current occupational exposures/hazards: No special edie needs: No Smoking Status: Former smoker Tobacco: How many years used: 3 second hand exposure: No substance use type: does not use Evaluation Evaluation Baseline heart rate: 130 Variability: Moderate (11-25) monitor accelerations: Present monitor decelerations: Absent Category of Tracing: I Diagnosis, Plan/Disposition Final Diagnosis (1) 41 weeks gestation of : Status: Acute Plan/Disposition Plan: 34-year-old at 41 weeks gestation. Patient is wanting to wait on induction. NST reactive. She is scheduled for induction the evening 06/14/20. OB Disposition: home
== END 2020-06-12 10:25 | disposition home or self-care (01) ==
LOC: OB 06-13 10:00
PROVIDERS: PCP Family Medicine; Referring Provider Family Medicine; Visit Provider Family Medicine
DX: O48.0 Post-term pregnancy (principal); Z3A.41 41 weeks gestation of pregnancy
CPT/HCPCS: 59025; G0378; G0379

== ENCOUNTER 2020-06-14 02:15 | Inpatient (IN) | payer OTHER, SELFPAY ==
--- NOTE | 2020-06-14 03:26 | P.PCNOB_ITS ---
Labor & Delivery Delivery date: 06/14/20 Delivery monitor: external FHT Route of delivery: L&D Laceration Description: Perineal - 2nd Degree Delivery repair: vicryl Estimated blood loss (mL): 150 Anesthesia type: None Narrative: Patient is a 31-year-old at 41 weeks and 2 days gestation who gave on 06/14/20 at 02:45. SIMIN: 06/13/20 Hospital problems: 41 weeks of STAGE I: Labor Patient presented in active labor. Contractions began at approximately 10:00 p.m. on the night 06/13/20. Spontaneous rupture membranes occurred at home at 1:00 a.m. with clear fluid. Upon arrival to center patient was 6 cm in requesting an epidural however she rapidly progressed to complete. STAGE II: Delivery Spontaneous vaginal delivery occurred at 2:45 a.m.. Infant was vertex and BROCK and delivered easily through an intact perineum. She was immediately placed on mother's abdomen. Cord was clamped and cut after approximately 1 minute delay. Apgars were 8 and 9. No resuscitation of the required beyond drying and stimulating. STAGE III: Placenta/Cord Placenta delivered spontaneously at 2:52 a.m. after active management and appeared intact with a three-vessel cord. I am Pitocin given after delivery of placenta. A second-degree perineal laceration was repaired in the usual fashion with 4 0 Vicryl with good hemostasis. Fundus was firm at umbilicus after delivery. EBL: 100 mL. Needle and sponge counts were correct. The vagina was inspected and no items were left in situ. Patient was doing well with her and has been at bedside. [place] Baby 1: gender: Female Presentation: vertex Placenta delivery description: Spontaneous cord vessel description: 3 Vessels score (1 min): 8 score (5 min): 9
--- NOTE | 2020-06-14 03:26 | PM.OBHP.1 ---
OB HPI Date/Time Date of admission: 06/14/20 Date Patient Seen: 06/14/20 Time Patient Seen: 02:43 History of Present Condition Chief complaint: Evaluation of Labor : 3 Para: 1 Estimated Date of Delivery: 06/05/20 Estimated Gestational Age (weeks): 41w2d Narrative: Elina Perea is a 34 year old at 41 weeks and 2 days gestation in active labor. Patient reports contractions began at approximately 10:00 p.m.. Spontaneous rupture of membranes 1:00 a.m. with clear fluid. was uncomplicated. She transferred care from the [facility] at 25 weeks. Twenty week ultrasound was significant for estimated weight the eighty-eighth percentile with an increased head to abdominal circumference. Repeat ultrasound later in the with estimated weight at the seventy-third percentile. History of Present care: good care, initiated at week # (9), number of visits (14) and pounds weight gain (41) Dating criteria: LMP confirmed by 1st trimester US Ultrasounds: normal mid trimester US Obstetrical complications: none Medical complications: none Preadmission Labs Blood type: B (+) positive -: Antibody screen: negative, Cystic fibrosis screen: negative, GBS status: negative, HBsAG: negative, HIV: negative and RPR/VDLR: negative -: Chlamydia screen: not detected and Gonorrhea screen: not detected -: Rubella: immune and Varicella: immune HCT: 41 HCAB: negative Quad screen: Normal Urine: Negative 1 hr GTT: 108 Prior (ies) History: 09/04/17 at 41 weeks, 22 hour labor, epidural, 8 lb 9 oz male, Located Within [facility], breast fed 24 months 06/24/18 SAB 9 weeks Evaluation Evaluation Cervical dilation (cm): 10 Cervical effacement (%): 100 station: +2 PFSH Medical History Back pain at L4-L5 level (Acute) Eczema (Acute) GERD (gastroesophageal reflux disease) (Acute) HPV (human papilloma virus) anogenital infection (Acute) Impingement syndrome of both shoulders (Acute) Muscle strain of left hip (Acute) Neoplasm (Acute) (spontaneous vaginal delivery) (Acute) Surgical History [place] teeth removed (Acute) Family History Father Aortic valve disorder Cardiovascular disease Hypertension Myocardial infarction Stroke Grandmother Diabetes mellitus Breast cancer Family/Other Breast cancer Grandfather Alcoholic Pacemaker Arrhythmia Grandmother Dementia Social History marital status: number of children: 1 household members: spouse and children education level: college current occupational exposures/hazards: No special edie needs: No Smoking Status: Former smoker Tobacco: How many years used: 3 second hand exposure: No substance use type: does not use Meds Home Medications and Allergies Home Medications Medication Instructions Recorded Confirmed Type PNV cmb#95-ferrous fumarate-FA 1 tab PO QPM 06/25/18 05/09/20 History [] Double Electric Breast Pump #1 ea 05/15/20 Rx Allergies Allergy/AdvReac Type Severity Reaction Status Date / Time nickel Allergy Severe Rash Verified 06/12/20 09:12 amoxicillin Allergy Verified 06/12/20 09:12 Review of Systems Review of Systems ROS: Yes All systems reviewed with the patient and are negative except as otherwise documented Exam Vital Signs (past 8 hours): Blood pressure 126/61 heart rate 82 Const General: healthy appearing and comfortable HENGA Head: normal to inspection Ears: hearing grossly normal bilaterally Nose: external nose normal Face and sinus: normal facial exam Mouth: oral mucosae normal Eyes General: appearance normal, both eyes and all related structures Neck Neck: normal visual inspection Resp Effort & Inspection: normal respiratory effort Cardio Rate: regular rate GI Other: Gravid External Female Exam: normal external appearance Manual OB Exam: dilated 10, effaced fully and station '+2 Presentation: vertex Estimated Weight (lbs): 8 Amniotic Fluid: clear Back/Spine/Pelvis Back: normal to inspection Skin General: no rashes or lesions noted Extrem General: normal to inspection and no pedal edema Assessment and Plan Assessment and Plan Assessment and Plan narrative: Patient is a 34-year-old at 41 weeks and 2 days gestation. Upon arrival to the center she was 6 cm however rapidly progressed to complete. Spontaneous rupture membranes occurred at home with clear fluid. GBS negative. She delivered shortly after arrival center. Please see delivery note.
[2020-06-14] MEDS: IBUPROFEN 600 MG TABLET PO ×3 (04:09→17:26)
[2020-06-14] MEDS: DERMOPLAST SPRAY 20% 60 ML 1 SPRAY TOP (04:11)
[2020-06-14] MEDS: ACETAMINOPHEN 325 MG TABLET 650 MG PO ×2 (04:11→09:44)
[2020-06-14 06:14] LABS: Add Manual Diff / Slide Review NO; Basophils Absolute Auto 0 /uL (0-100); Basophils Percent Auto 0.2 % (0-2); Eosinophils Absolute Auto 0 /uL (0-450); Eosinophils Percent Auto 0.1 % (2-4); Hematocrit 40.6 % (36-46); Hemoglobin 13.8 g/dL (12.0-16.0); Lymphocytes Absolute Auto 4100 /uL (1100-4500); Lymphocytes Percent Auto 23.4 % (25-40); Mean Corpuscular HGB Conc 33.9 % (30-36); Mean Corpuscular Hemoglobin 32.3 PG (26-34); Mean Corpuscular Volume 95.3 fL (80-100); Monocytes Absolute Auto 700 /uL (0-900); Monocytes Percent Auto 4.2 % (3-14); Neutrophils Absolute Auto 12600 /uL (1500-7000); Neutrophils Percent Auto 72.1 % (50-75); Platelet Count 201 X10^3/uL (150-400); Red Blood Cell Count 4.26 X10^6/uL (4.0-5.2); White Blood Cell Count 17.5 X10^3/uL (4.5-11.0)
[2020-06-14 06:20] VITALS: BP 124/77
[2020-06-14] MEDS: DOCUSATE 100 MG CAPSULE PO (09:15)
[2020-06-14] MEDS: PRENATAL VIT,CALC/IRON/FOLIC 1 TABLET 1 TAB PO (09:15)
--- NOTE | 2020-06-14 09:18 | P.DS_ITS ---
Discharge Providers Provider Date of admission: 06/14/20 02:15 Discharge Date: 06/14/20 Primary care physician: Rosalinda Rm Consults: 06/15/20 03:25 Consult to Electro Mechanical Designer Routine Comment: Discharge provider: Serenity Becerra DO Summary Hospital Course Date Patient Seen: 06/14/20 Time Patient Seen: 09:00 Procedures: Spontaneous vaginal delivery Hospital Course: Patient is a 34 year old after uncomplicated vaginal delivery on 06/14/20 at 41 weeks and 2 days gestation. She delivered a vigorous female shortly after arrival in the center. A second degree perineal laceration was repaired in the usual fashion with good hemostasis. patient did very well. was going well. Patient was ambulating, voiding and eating. Bleeding was moderate as expected. Pain controlled with ibuprofen only. She was eager to return home. If meets passes all screenings they will discharge home later this evening. Patient was advised to call for fevers, severe pain or bleeding through more than a pad an hour. Follow up in clinic in six weeks. Peripartum Data Delivery Method: Natural Vaginal Laceration description: Perineal - 2nd Degree complications: none [place] 1: Gender: Female Disposition of : home Discharge Diagnosis (1) 41 weeks gestation of : Status: Acute (2) Spontaneous vaginal delivery: Status: Acute Status at Discharge Cognitive/behavioral status at discharge: at baseline, oriented Functional status at discharge: independent ambulation Overall status at discharge: patient is back to baseline Time Spent with Patient Time attestation: Total time spent providing and/or coordinating discharge services: Objective Labs Result Diagrams: 06/14/20 02:40 Labs: Laboratory Results - last 24 hr 06/14/20 06/14/20 02:40 02:40 WBC 17.5 H RBC 4.26 Hgb 13.8 Hct 40.6 MCV 95.3 MCH 32.3 MCHC 33.9 RDW 13.0 Plt Count 201 Neut % (Auto) 72.1 Lymph % (Auto) 23.4 L [place] % (Auto) 4.2 Eos % (Auto) 0.1 L Baso % (Auto) 0.2 Neut # (Auto) 30385 H Lymph # (Auto) 4100 [place] # (Auto) 700 Eos # (Auto) 0 Baso # (Auto) 0 Blood Type B Positive Antibody Screen Negative Exam Vital Signs (past 8 hours): - 06/14/20 06:20 Blood Pressure 124/77 temperature 37? blood pressure 100/58 heart rate 82 Narrative Exam Narrative: General: Awake and alert, no acute distress. HEENT: NCAT, EOMI, moist oral mucosa CV: Regular rate and rhythm, no murmurs, rubs or gallops Lungs: CTAB, no wheezes, rales, or rhonchi Abdomen: Soft, nontender; bowel tones active; uterus firm 1 cm below umbilicus Extremities: Warm, no edema Discharge Plan Discharge Plan Patient Disposition: Home Discharge orders & Medications Prescriptions: New docusate sodium [DOK] 100 mg Capsule 100 mg PO DAILY Qty: 30 RF: 0 ibuprofen 600 mg Tablet 600 mg PO Q6HR PRN (Reason: Pain, Mild (1-3)) Qty: 30 RF: 0 Continued (DME) Double Electric Breast Pump Qty: 1 RF: 0 PNV cmb#95-ferrous fumarate-FA [] 28 mg iron- 800 mcg Tablet 1 tab PO QPM RF: 0 Follow up/Referrals: Serenity Becerra DO [Physician] - 6 Weeks Rosalinda Rm [Primary Care Provider] - Visit Report/Discharge Packet Visit Report Forms: Patient Portal/API, Stroke Signs & Symptoms Discharge Data Primary Care Provider: Rosalinda Rm
[2020-06-14 20:16] VITALS: BP 124/77; PULSE 77; RESP 16; TEMP 36.7
== END 2020-06-14 20:35 | disposition home or self-care (01) | DRG 807 ==
PROVIDERS: Admitting Provider Family Medicine; PCP Family Medicine; Referring Provider Family Medicine; Visit Provider Family Medicine
DX: O48.0 Post-term pregnancy (principal); Z37.0 Single live birth; Z3A.41 41 weeks gestation of pregnancy; O70.1 Second degree perineal laceration during delivery
CPT/HCPCS: 59050; 59410; 85025; 86850; 86900; 86901; G0379

== ENCOUNTER → 2021-12-28 16:34 | Outpatient (CLI) | payer OTHER, SELFPAY ==
[2021-12-28 19:10] LABS: HCG Quantitative /Beta subunit 5392.7 mIU/mL
== END ==
PROVIDERS: PCP Family Medicine; Referring Provider Registered Nurse; Visit Provider Registered Nurse
DX: Z34.90 Encounter for supervision of normal pregnancy, unspecified, unspecified trimester (principal)
CPT/HCPCS: 36415; 84702

== ENCOUNTER → 2022-01-16 14:05 | Outpatient (CLI) | payer OTHER, SELFPAY ==
--- NOTE | 2022-01-16 14:06 | DI.US.S_ITS ---
PROCEDURE: US OB <= 14 WEEKS FETUS INDICATIONS: VIABILITY AND DATES OUTSIDE/PRIOR DATING DATA: Last menstrual period (LMP): 11/18/2021 LMP-based estimated date of delivery (SIMIN): 08/25/2022 First dating scan (date and location): 01/16/2022 Estimated date of delivery (SIMIN) from first dating scan: 08/26/2022 TECHNIQUE: Real-time scanning was performed of the fetus and maternal pelvic organs, with image documentation. Endovaginal scanning was also performed to better visualize the fetus and maternal ovaries. COMPARISON: [facility], , OB <= 14 WEEKS FETUS, 06/25/2018, 15:18. FINDINGS: Embryo: A gestational sac with a pole which has a heart rate of 171 has a crown-rump length measuring 1.8 cm corresponding with an 8 week 2 day fetus. Heart rate: 171 Maternal organs: The ovaries are normal. An echogenic area measured is likely shadowing. IMPRESSION: Single live intrauterine with a gestational age of 8 weeks 2 days by crown-rump length. We strive to produce accurate, complete, and clear reports of imaging services. To assist us in improving patient care, this report was composed using standard report templates and voice recognition software. Therefore, it may contain abnormal punctuation, insertions and/or omissions. Occasional wrong-word or sound-alike substitutions may occur. Though we review the report and make efforts to correct it, we do recommend that the report be read carefully in proper context to recognize any text inaccuracies. Dictated by: Abhi Hernandez M.D. on 01/16/2022 at 16:27 Approved by: Abhi Hernandez M.D. on 01/16/2022 at 16:30
== END ==
PROVIDERS: PCP Family Medicine; Referring Provider Family Medicine; Visit Provider Family Medicine
DX: Z34.81 Encounter for supervision of other normal pregnancy, first trimester (principal); Z3A.08 8 weeks gestation of pregnancy
CPT/HCPCS: 76801; 76817

== ENCOUNTER → 2022-02-08 15:38 | Outpatient (CLI) | payer OTHER, SELFPAY ==
[2022-02-08 15:56] LABS: Add Manual Diff / Slide Review NO; Basophils Absolute Auto 0 /uL (0-100); Basophils Percent Auto 0.2 % (0-2); Eosinophils Absolute Auto 0 /uL (0-450); Eosinophils Percent Auto 0.2 % (2-4); Hemoglobin 13.6 g/dL (12.0-16.0); Lymphocytes Absolute Auto 3000 /uL (1100-4500); Mean Corpuscular Hemoglobin 31.2 PG (26-34); Mean Corpuscular Volume 91.8 fL (80-100); Monocytes Absolute Auto 400 /uL (0-900); Monocytes Percent Auto 2.8 % (3-14); Neutrophils Absolute Auto 10900 /uL (1500-7000); Neutrophils Percent Auto 75.8 % (50-75); Platelet Count 216 X10^3/uL (150-400); Red Blood Cell Count 4.36 X10^6/uL (4.0-5.2); Red Cell Distribution Width 12.8 % (11.6-14.8); White Blood Cell Count 14.4 X10^3/uL (4.5-11.0)
[2022-02-08 15:57] LABS: Appearance Urine UA CLEAR; Bilirubin Urine UA NEGATIVE (NEGATIVE); Color Urine UA YELLOW; Glucose Urine UA NEGATIVE (Negative); Ketones Urine UA NEGATIVE (NEGATIVE); Leukocyte Esterase Urine UA NEGATIVE (NEGATIVE); Nitrite Urine UA NEGATIVE (Negative); Occult Blood Urine UA TRACE-LYSED (Negative); Protein Urine UA NEGATIVE (Negative); Specific Gravity Urine UA <=1.005 (1.000-1.035); Urobilinogen Urine UA 0.2 E.U./dL (0.2)
[2022-02-08 17:06] LABS: TSH w/ Reflex to FT4 0.64 uIU/mL (0.47-4.68)
[2022-02-09 07:12] LABS: RPR Screen Non Reactive (Non Reactive)
[2022-02-09 08:38] LABS: Varicella IgG Antibody 733 index (Immune >165)
[2022-02-11 16:18] LABS: HIV 1 & 2 Ab/Ag 4th Gen Combo NEGATIVE (NEGATIVE); Hep C Virus Ab w/Reflex Quant NEGATIVE s/c (NEGATIVE); Hepatitis B Surface Antigen NEGATIVE s/c (NEGATIVE); Rubella Antibody IgG 32.2 IU/mL (>15)
== END ==
PROVIDERS: PCP Family Medicine; Referring Provider Family Medicine; Visit Provider Family Medicine
DX: R68.89 Other general symptoms and signs (principal); Z34.80 Encounter for supervision of other normal pregnancy, unspecified trimester
CPT/HCPCS: 36415; 80055; 81003; 84443; 86787; 86803; 86850; 86900; 86901; 87086; 87389

== ENCOUNTER → 2022-03-08 15:18 | Outpatient (CLI) | payer OTHER, SELFPAY | PROVIDERS: PCP Family Medicine; Referring Provider Family Medicine; Visit Provider Family Medicine | DX: O09.521 Supervision of elderly multigravida, first trimester (principal); Z3A.12 12 weeks gestation of pregnancy; Z31.438 Encounter for other genetic testing of female for procreative management; Z36.0 Encounter for antenatal screening for chromosomal anomalies | CPT/HCPCS: 36415; 81420 ==

== ENCOUNTER → 2022-05-02 14:03 | Outpatient (CLI) | payer OTHER, SELFPAY ==
[2022-05-04 21:10] LABS: Gest Age on Col Date 23.4 weeks (.); Insulin Dep Diabetes No (.); OSBR Risk 1IN 4034 (.); Results Report (.); Test Results *Screen Negative* (.)
== END ==
PROVIDERS: PCP Family Medicine; Referring Provider Physician Assistant Medical; Visit Provider Physician Assistant Medical
DX: Z34.82 Encounter for supervision of other normal pregnancy, second trimester (principal); Z3A.23 23 weeks gestation of pregnancy
CPT/HCPCS: 36415; 82105

== ENCOUNTER → 2022-06-13 09:28 | Outpatient (CLI) | payer OTHER, SELFPAY ==
[2022-06-13 11:07] LABS: Hematocrit 34.3 % (36-46); Hemoglobin 11.8 g/dL (12.0-16.0)
[2022-06-13 12:22] LABS: GTT (PREG) 1 Hour PP 50gm Dose 101 mg/dL (76-139)
== END ==
PROVIDERS: PCP Family Medicine; Referring Provider Physician Assistant Medical; Visit Provider Physician Assistant Medical
DX: Z34.82 Encounter for supervision of other normal pregnancy, second trimester (principal); Z3A.26 26 weeks gestation of pregnancy
CPT/HCPCS: 36415; 82950; 85014; 85018

== ENCOUNTER → 2022-06-28 15:56 | Outpatient (CLI) | payer OTHER, SELFPAY ==
--- NOTE | 2022-06-28 15:57 | DI.US.S_ITS ---
PROCEDURE: US OB FOLLOW UP INDICATIONS: outflow tracts OUTSIDE/PRIOR DATING DATA: Last menstrual period (LMP): 11/18/2021. LMP-based estimated date of delivery (SIIMN): 08/25/2022. First dating scan (date and location): 01/16/2022. Estimated date of delivery (SIMIN) from first dating scan: 08/26/2022. TECHNIQUE: Real-time scanning was performed of the fetus, with image documentation and biometric measurements. COMPARISON: [facility], OB <= 14 WEEKS FETUS, 01/16/2022, 14:41. [facility], OB LIMITED, 04/05/2020, 16:14. [facility] OB > 14 WEEKS, 01/19/2020, 13:45. [facility] OB <= 14 WEEKS FETUS, 06/25/2018, 15:18. FINDINGS: General: A single living intrauterine gestation is present. Presentation: Vertex. Placenta: Placental position is posterior , without previa. Amniotic fluid index: 15 cm, normal range is 5-24 cm. heart rate: 139 beats per minute. Maternal cervical canal: 6.3 cm long. Normal lower limit is 2.5 cm. biometrics: Biparietal diameter: 7.4 cm 29 weeks 6 days Head circumference: 29.1 cm 32 weeks 1 day Abdominal circumference: 30.2 cm 34 weeks 1 day Femur length: 6.1 cm 31 weeks 5 days Composite gestational age from initial scan: 31 weeks 4 days Composite gestational age from present scan: 32 weeks 0 days Estimated weight and percentile: 2062 g 80th percentile Other: Outflow tracts are within normal limits. IMPRESSION: Single live intrauterine with ultrasound gestational age today of 32 weeks 0 days. Outflow flow tracts are within normal limits. We strive to produce accurate, complete, and clear reports of imaging services. To assist us in improving patient care, this report was composed using standard report templates and voice recognition software. Therefore, it may contain abnormal punctuation, insertions and/or omissions. Occasional wrong-word or sound-alike substitutions may occur. Though we review the report and make efforts to correct it, we do recommend that the report be read carefully in proper context to recognize any text inaccuracies. Dictated by: Radha Marquez M.D. on 06/28/2022 at 17:13 Approved by: Radha Marquez M.D. on 06/28/2022 at 17:15
== END ==
PROVIDERS: PCP Family Medicine; Referring Provider Family Medicine; Visit Provider Family Medicine
DX: Z36.2 Encounter for other antenatal screening follow-up (principal); Z3A.32 32 weeks gestation of pregnancy
CPT/HCPCS: 76816

== ENCOUNTER → 2022-08-02 12:12 | Outpatient (CLI) | payer OTHER, SELFPAY ==
[2022-08-03 08:52] LABS: Strep Grp B PCR POS for Grp B Strep
== END ==
PROVIDERS: PCP Family Medicine; Visit Provider Family Medicine
DX: Z34.93 Encounter for supervision of normal pregnancy, unspecified, third trimester (principal); Z3A.35 35 weeks gestation of pregnancy
CPT/HCPCS: 87186; 87653

== ENCOUNTER 2022-08-29 14:59 | Outpatient (CLI) | payer OTHER, SELFPAY ==
--- NOTE | 2022-08-29 15:05 | DI.US.S_ITS ---
PROCEDURE: US OB LIMITED INDICATIONS: AMNIOTIC FLUID OUTSIDE/PRIOR DATING DATA: Last menstrual period (LMP): 11/18/2021. LMP-based estimated date of delivery (SIMIN): 08/25/2022. First dating scan (date and location): 01/16/2022. Estimated date of delivery (SIMIN) from first dating scan: 08/26/2022. The calculations are made using the ultrasound SIMIN of 08/26/2022. TECHNIQUE: Real-time scanning was performed of the fetus, with image documentation. Endovaginal scanning: Not performed COMPARISON: None. FINDINGS: A single living intrauterine gestation is present. Presentation: Vertex. Placenta: Placental position is posterior, without previa. Amniotic fluid index: 16.4 cm, normal range is 5-24 cm. Single deepest vertical pocket is 5.9 cm. heart rate: 139 beats per minute. Maternal cervical canal: Not seen at late stage of Clinically estimated gestational age: 40 weeks 3 days Estimated gestational age from initial scan: 40 weeks 3 days. IMPRESSION: Normal RASHAWN. Dictated by: Hunter Colon M.D. on 08/29/2022 at 16:22 Approved by: Hunter Colon M.D. on 08/29/2022 at 16:24
--- NOTE | 2022-08-29 16:12 | PM.OBTRLD ---
Visit Information Visit Information Date of evaluation: 08/29/22 Primary OB Provider: Serenity Becerra Reason for Evaluation: Yes non-stress test Vital Signs Vital Signs: Blood pressure 120/60 heart rate 76 PFSH Medical History Anxiety Back pain at L4-L5 level Carpal tunnel syndrome Depression Eczema GERD (gastroesophageal reflux disease) HPV (human papilloma virus) anogenital infection Impingement syndrome of both shoulders Irritable bowel syndrome Muscle strain of left hip Neoplasm OCD (obsessive compulsive disorder) PTSD (post-traumatic stress disorder) (spontaneous vaginal delivery) Surgical History [place] teeth removed Family History Father Aortic valve disorder Cardiovascular disease Hypertension Myocardial infarction Stroke Grandmother Diabetes mellitus Breast cancer Family/Other Breast cancer Grandfather Alcoholic Pacemaker Arrhythmia Hyperlipidemia Hypertension Grandmother Dementia Social History marital status: number of children: 2 household members: spouse and children lives independently: Yes housing: house pets and animals: Yes (Dogs, aware Toxo with gardening) education level: college occupational status: unemployed current occupational exposures/hazards: No special edie needs: No seatbelt use: always water heater temp set < 120 deg: Yes working smoke detector in home: Yes fire extinguisher in home: Yes carbon monox detector in home: Yes firearms in home: Yes firearms unloaded and locked: Yes do you feel safe at home: Yes Smoking Status: Former smoker Tobacco: How many years used: 3 second hand exposure: No alcohol intake: former substance use type: does not use and former substance user during the past year weight has: remained stable well-balanced diet: daily or most days daily servings fruits/ve-4 caffeine: No (limit 200 mg a day if starts) Type(s) of exercise: regular exercise frequency: 5-6 times per week Evaluation Evaluation Baseline heart rate: 130 Variability: Moderate (11-25) monitor accelerations: Present Monitor Decelerations: Absent Category of Tracing: Reactive Diagnosis, Plan/Disposition Final Diagnosis (1) 40 weeks gestation of : Status: Acute Plan/Disposition Plan: 36-year-old at 40 weeks and 4 days gestation here for postdates testing. NST reactive. RASHAWN 16. She is scheduled for induction on 09/05/22 undelivered. OB Disposition: home
== END 2022-08-29 15:50 | disposition home or self-care (01) ==
LOC: LABOR 15:58 → OB 09-19 07:28
PROVIDERS: PCP Family Medicine; Referring Provider Family Medicine; Visit Provider Family Medicine
DX: O48.0 Post-term pregnancy (principal); Z3A.40 40 weeks gestation of pregnancy
CPT/HCPCS: 59025; 76815; G0378; G0379

== ENCOUNTER 2022-08-30 02:40 | Inpatient (IN) | payer OTHER, SELFPAY ==
[2022-08-30 03:51] LABS: Add Manual Diff / Slide Review NO; Basophils Absolute Auto 100 /uL (0-100); Basophils Percent Auto 0.5 % (0-2); Eosinophils Absolute Auto 0 /uL (0-450); Eosinophils Percent Auto 0.3 % (2-4); Hematocrit 39.6 % (36-46); Hemoglobin 13.5 g/dL (12.0-16.0); Lymphocytes Absolute Auto 3500 /uL (1100-4500); Lymphocytes Percent Auto 24.1 % (25-40); Mean Corpuscular HGB Conc 34.1 % (30-36); Mean Corpuscular Hemoglobin 32.4 PG (26-34); Mean Corpuscular Volume 94.9 fL (80-100); Monocytes Absolute Auto 700 /uL (0-900); Monocytes Percent Auto 4.7 % (3-14); Neutrophils Absolute Auto 10100 /uL (1500-7000); Neutrophils Percent Auto 70.4 % (50-75); Platelet Count 244 X10^3/uL (150-400); Red Blood Cell Count 4.17 X10^6/uL (4.0-5.2); Red Cell Distribution Width 13.2 % (11.6-14.8); White Blood Cell Count 14.4 X10^3/uL (4.5-11.0)
[2022-08-30] MEDS: LACTATED RINGERS 1,000 ML 100 ML IV ×2 (03:52→07:23)
[2022-08-30] MEDS: CEFAZOLIN 2 GM/100 ML PREMIX 100 ML IV ×2 (03:52→06:52)
[2022-08-30 03:57] VITALS: BP 120/73
[2022-08-30 04:23] LABS: COVID19 -Nasal RAPID Negative (Negative)
--- NOTE | 2022-08-30 06:43 | PM.OBHP.IH.1 ---
OB HPI Date/Time Date of admission: 08/30/22 Date Patient Seen: 08/30/22 Time Patient Seen: 05:30 History of Present Condition Chief complaint: Labor SIMIN Calculator Estimated Delivery Date Method Current WG Current Estimate 08/25/22 LMP (Uncertain) 40w 5d Other Estimates 08/26/22 Ultrasound #1 40w 4d Narrative: 36-year-old at 40 weeks and 5 days presenting in active labor. Regular contractions began at home around 1:30 a.m. prompting her to come to the center. No leaking or bleeding. Good movement. Uncomplicated care. care: good care, initiated at week # (11), number of visits (12) and pounds weight gain (33) Dating criteria OB: LMP confirmed by 1st trimester US Ultrasounds: normal mid trimester US Obstetrical complications: none Medical complications OB: none Preadmission Labs Last OB Lab Results: Blood Type B Positive 08/30/22 03:40 Antibody Screen Negative 08/30/22 03:40 Hematocrit 39.6 % (36-46) 08/30/22 03:40 Hemoglobin 13.5 g/dL (12.0-16.0) 08/30/22 03:40 Hepatitis B Surface Antigen Negative s/c (NEGATIVE) 02/08/22 15:41 Hepatitis C Antibody Negative s/c (NEGATIVE) 02/08/22 15:41 Rubella Antibody 32.2 IU/mL (>15) 02/08/22 15:41 Varicella-Zoster IgG Antibody 733 index (Immune >165) 02/08/22 15:41 Glucose 1 Hour 101 mg/dL (76-139) 06/13/22 09:47 Group B Streptococcus (PCR) Pos for grp b strep H 08/02/22 12:12 -: Chlamydia screen: negative, Gonorrhea screen: negative and Urine: negative -: PAP smear: Normal Genetic Screens: Cell-free DNA: Normal and Alpha-fetoprotein: Normal External Labs -: Urine: negative Prior (ies) Past Pregnancies Del. Date GA/Weeks Labor Lgth Wt Sex Route Outcome Anesthesia Place Delv Breastfeed Preg Comp Name 09/04/17 41 22 8 lb 9 oz Male vaginal live - full term epidural [facility] MV 24 months none N/A 06/24/18 9 spontaneous [place] spontaneous 06/14/20 42 5 9 lb 1.47 oz Female vaginal live - full term [facility] still nursing none [place] Delivery Date: 09/04/17 Last Updated by: Michelle Adler R.N. *Had some PPD : never diagnosed but feels she had it. Evaluation Evaluation Baseline heart rate: 150 Variability: Moderate (11-25) monitor accelerations: Present Monitor Decelerations: Variable Contraction Frequency (minutes): 4 Status: Category ll Dilation (cm): 9 Effacement (%): 100 station: -1 [facility] Medical History Anxiety Back pain at L4-L5 level Carpal tunnel syndrome Depression Eczema GERD (gastroesophageal reflux disease) HPV (human papilloma virus) anogenital infection Impingement syndrome of both shoulders Irritable bowel syndrome Muscle strain of left hip Neoplasm OCD (obsessive compulsive disorder) PTSD (post-traumatic stress disorder) (spontaneous vaginal delivery) Surgical History [place] teeth removed Family History Father Aortic valve disorder Cardiovascular disease Hypertension Myocardial infarction Stroke Grandmother Diabetes mellitus Breast cancer Family/Other Breast cancer Grandfather Alcoholic Pacemaker Arrhythmia Hyperlipidemia Hypertension Grandmother Dementia Social History marital status: number of children: 2 household members: spouse and children lives independently: Yes housing: house pets and animals: Yes (Dogs, aware Toxo with gardening) education level: college occupational status: unemployed current occupational exposures/hazards: No special edie needs: No seatbelt use: always water heater temp set < 120 deg: Yes working smoke detector in home: Yes fire extinguisher in home: Yes carbon monox detector in home: Yes firearms in home: Yes firearms unloaded and locked: Yes do you feel safe at home: Yes Smoking Status: Never smoker Tobacco: How many years used: 3 second hand exposure: No alcohol intake: former substance use type: does not use and former substance user during the past year weight has: remained stable well-balanced diet: daily or most days daily servings fruits/ve-4 caffeine: No (limit 200 mg a day if starts) Type(s) of exercise: regular exercise frequency: 5-6 times per week Meds Home Medications and Allergies Home Medications Medication Instructions Recorded Confirmed Type vit no.95-ferrous 1 tab PO QPM 06/25/18 08/29/22 History fumarate 28 mg-folic acid 800 mcg tablet () omega 6-byr-zou-fish oil 60 mg-90 1 cap PO DAILY 01/17/22 08/29/22 History mg-500 mg capsule (Fish Oil) double electric breast pump and #1 ea 08/02/22 08/29/22 Rx supplies Allergies Allergy/AdvReac Type Severity Reaction Status Date / Time nickel Allergy Severe Rash Verified 08/30/22 08:11 amoxicillin Allergy Verified 08/30/22 08:11 OB Exam HENMT Head: normal to inspection Eyes General: appearance normal, both eyes and all related structures Resp Effort & Inspection: normal respiratory effort Presentation: vertex Estimated Weight (lbs): 9 Objective Labs Result Diagrams: 08/30/22 03:40 Labs: Laboratory Results - last 24 hr 08/30/22 08/30/22 03:40 03:46 WBC 14.4 H RBC 4.17 Hgb 13.5 Hct 39.6 MCV 94.9 MCH 32.4 MCHC 34.1 RDW 13.2 Plt Count 244 Neut % (Auto) 70.4 Lymph % (Auto) 24.1 L [place] % (Auto) 4.7 Eos % (Auto) 0.3 L Baso % (Auto) 0.5 Neut # (Auto) 55933 H Lymph # (Auto) 3500 [place] # (Auto) 700 Eos # (Auto) 0 Baso # (Auto) 100 SARS-CoV-2 (PCR) Negative Assessment and Plan Assessment and Plan Assessment and Plan narrative: 36-year-old at 40 weeks and 5 days in active labor. She is GBS positive with a penicillin allergy and has received 1 dose of cefazolin. She is now 9 cm with a bulging bag and EFM category 2 due to recurrent variable decelerations. Given near delivery, will not wait for a second dose of antibiotics prior to AROM. Anticipate .
--- NOTE | 2022-08-30 06:44 | PM.PREOP ---
Pre-operative Note COVID-19 COVID-19 status: Negative Result date/Date tested (Pos, Neg/Pending): 08/30/22 Interval Note History & Physical reviewed/Exam performed by Physician: Yes Changes to H&P: No
[2022-08-30] MEDS: BUPIVACAINE 0.5% W/ EPI (PF) 30 ML VIAL INJ (07:31)
[2022-08-30] MEDS: ACETAMINOPHEN IV 1,000 MG/100 ML VIAL 400 MG IV (07:35)
--- NOTE | 2022-08-30 07:40 | SUR.OPER ---
Supine on Padded OR bed, head on pillow, tape over blanket at thigh, arms secured on padded arm boards at <90 degrees abduction. Bump under right buttock. Legs uncrossed, gel pad to heels, tape over blanket to lower legs.
--- NOTE | 2022-08-30 07:42 | SUR.OPER ---
Emergency , L&D nurses and doctors brought patient to OR. No official timeout due to nature of emergency, only name, date of , procedure, allergies and covid negative test result stated out loud for OR room while draping.
--- NOTE | 2022-08-30 07:47 | SUR.OPER ---
viable baby girl delivered at 0659. Placenta delivered. Cord blood tubes X2 and placenta given to L&D RN.
[2022-08-30] MEDS: ONDANSETRON 4 MG/2 ML INJ IV ×2 (08:20→18:34)
[2022-08-30 08:24] VITALS: BP 109/69; PULSE 98; RESP 16; TEMP 36.8; O2SAT 98
--- NOTE | 2022-08-30 08:42 | P.OP.PRE_ITS ---
Pre-operative Note COVID-19 COVID-19 status: Negative Result date/Date tested (Pos, Neg/Pending): 08/30/22 Criteria for continued procedure: Delay expected to result in less-positive ultimate med/surg outcome Interval Note History & Physical reviewed/Exam performed by Physician: Yes Changes to H&P: No H&P completed within 30 days and has changed as indicated here:: No change of maternal history and physical. Stat for nonreassuring heart rate pattern. 36-year-old female presented a few hours ago in labor. She progressed in labor and began pushing. She had severe variable decelerations with pushing. heart rate pattern showed slow recovery after the deceleration. I was initial call overnight, so aware of patient's medical history, Ob Hx, GBS+ status and initiall labor progress. Dr. Becerra her primary OB took over on- call. I was called to assist with delivery now for the severe variable decelerations. Patient was being prepped to take to the OR since delivery needed to be expedited and vertex felt to be to high for assisted vaginal delivery. I re- examined the patient prior to leaving the birthing center. Vertex 0 station, thick anterior lip felt at this time. Attempted to have patient reduce the lip with the push, with strong maternal forces anterior lip could not be reduced. Infant on exam likely OT position. Patient was consented to proceed with section for delivery.
--- NOTE | 2022-08-30 08:48 | PM.OP.1 ---
Operative Date/Time/Diagnoses Date of procedure: 08/30/22 Time of procedure: 07:00 Pre-op diagnosis: 40 week , labor, non reassuring, Cat 2 heart rate pattern, need for urgent delivery Post-op diagnosis: same Procedure & Clinicians Procedure: Stat primary lower transverse section Same procedure as scheduled: Yes Indications: 36-year-old female presented in labor. She progressed to pushing. She had severe recurrent variable decelerations with pushing. Vertex was remaining high, too high to assist vaginally,and FHR pattern was becoming nonreassuring with heart rate with slow recovery after the decelerations and short time at baseline heart rate before the next deceleration. I was called to assist with delivery. EFM strip quickly reviewed. On exam vertex 0 station, thick anterior lip palpated at this time. Anterior lip could not be reduced. I discussed with the patient that I agree with Dr. Becerra, that delivery of the baby should be expedited due to the severe heart rate deceleration and. Discussed I agree that I am unable to assist vaginally to expedite deliver and the need to proceed with an urgent section for delivery. Pt agreed. Procedure quickly reviewed including surgical risks the procedure and verbal consent obtained, written consent obtained by Dr. Becerra. Surgeon: Janeth Del Toro Tool Grinding Machine Operator: Serenity Becerra Click Yes if Unassisted: No Anesthesia Type: General and Epidural Operative Notes Findings: Viable female infant delivered @ 0659. Baby stimulated and dried after delivery. After cord clamped and cut, approx 15 seconds after delivery, baby gave a spontaneous cry and became more vigorous. Weight 4110g, 9 lb 1 oz Apgars: 6 and 8 at 1 and 5 minutes respectively Atony of lower uterine segment after delivery with heavier bleeding. Uterus gradually firmed up and bleeding decreased with IV Pitocin, closure of the uterus and Methergine 0.2 mg IM. Normal appearing uterus, bilateral ovaries and fallopian tubes. Umbilical venous cord gas 7.229, BE -7 Arterial cord gas clotted time in OR 0645, time of 0659 Closure Type: primary Specimen(s): none sent Estimated Blood Loss (mL): 600 Blood products transfused: none Procedure in detail: IV fluids: 1800 ml crystalloid Urine output: 300 mL Description of procedure: She was transferred from the center to the operating room and expedited. She was placed in the supine position. A Zhang catheter was sterilely placed. She had an epidural in place, and this was bolused. On auscultation of FHR in the OR, FHR in the 80s. With testing the anesthesia level, after quickly prepping and draping, level not adequate to proceed, even with consideration of giving local anesthesia in the incision. As it was going to take 10-15 minutes for epidural to reach an adequate level, with FHR currently in 80s, discussed with the patient need to proceed with general anesthesia for quicker delivery. She consented. Induction of general anesthesia performed. Immediately after induction of general anesthesia, a Pfannenstiel skin incision was made in the lower abdomen and carried down to the level of the fascia. The fascia was incised in the midline and was bluntly extended transversely. The muscles were bluntly in the midline. Adequate room was noted. The parietal peritoneum was bluntly entered and extended. Bladder blade was placed. The lower uterine segment, cervix was noted to be thin, consistent with her labor. The visceral peritoneum was elevated incised and bladder flap created. The retractor was replaced. A transverse incision was made in the lower uterine segment with final entry into the uterus, entered bluntly. The uterine incision was extended transversely with blunt dissection. Clear amniotic fluid was noted. The head was elevated to the uterine incision and delivered through the incision with some mild fundal pressure. was in the LOT position. A loop of cord was noted over the anterior shoulder; no nuchal cord present. Anterior and posterior shoulders followed by the body were delivered without difficulty. The infant was not vigorous. The was dried with a towel by Dr. Becerra while cord was clamped and cut and the was taken to the area. After cutting the cord the gave a spontaneous cry and started to become vigorous. A section of umbilical cord was isolated and cut for cord gases. Cord blood was obtained a specimen. The uterus was massaged and gentle traction given to the umbilical cord but the placenta did not deliver spontaneously. It was still mostly attached and was manually removed. The placenta appeared intact with a normal three-vessel cord. The uterus was brought through the abdominal incision and was swept clean of adherent clots and membranes. She did have brisk bleeding from the edges of the incision. The edges of the incision were grasped. IV Pitocin was given and subsequently methergine IM. The uterus was quickly closed in 2 layers with 0 Vicryl, the 1st layer being in running locking continuous fashion and the 2nd layer being in a vertical imbricating type fashion. During closure the uterus overall firmed up well, but was atonic in the lower uterine segment. The uterus was intermittently massaged during closure. After closure of the 1st layer, the lower uterine segment was further massaged. The uterus gradually firmed up througout. After closure of the 1st layer, overall hemostasis improved. There were 2 areas of moderate bleeding along the incision in the midline and this was controlled with an imbricating [id number] suture of 0 Vicryl in the 2 areas. The full 2nd imbricating layer was then placed. Hemostasis was noted. The tubes and ovaries were inspected and noted to be normal. Posterior to the uterus was suctioned of some minimal fluid and blood. The uterus was placed back into the abdomen. The paracolic gutters were inspected and wiped of some minimal blood and fluid. The anterior cul-de-sac was inspected and some clot was removed. The pelvis was irrigated. Repeat inspection of the uterine incision and pelvis showed continued hemostasis. The abdomen was closed. The parietal peritoneum was reapproximated with running 3-0 Vicryl. The fascia was closed with running continuous suture of 0 Vicryl. The skin was closed with a subcuticular suture of 4-0 Monocryl. Steri-Strips and sterile Aquacel dressing was placed. She tolerated the procedure well and went to the recovery room in stable condition. Complications: none Post-operative Condition: stable Disposition: PACU Plan for aftercare: transferred from the PACU to the floor for routine post , care
[2022-08-30] MEDS: OXYCODONE IR 5 MG TABLET PO (09:11)
[2022-08-30] MEDS: KETOROLAC 30 MG/ML VIAL IV ×2 (14:06→20:38)
[2022-08-30] MEDS: ACETAMINOPHEN 325 MG TABLET 650 MG PO (18:34)
[2022-08-31] MEDS: ACETAMINOPHEN 325 MG TABLET 650 MG PO ×4 (00:29→23:10)
[2022-08-31] MEDS: KETOROLAC 30 MG/ML VIAL IV (04:41)
[2022-08-31] MEDS: DOCUSATE 100 MG CAPSULE 200 MG PO (09:07)
--- NOTE | 2022-08-31 09:47 | PM.OBPN.1 ---
Subjective - OB Subjective Patient comments: no complaints, pain well controlled, tolerating diet and flatus present baby status: doing well and nursing well [place] feeding status: exclusively breast feeding Date Patient Seen: 08/31/22 Time Patient Seen: 09:00 Interval history: She is doing well this morning. without issues or concerns in the . She looks forward to a shower this morning. Last night she was dizzy when she got up but not this morning. Tolerating a diet and passing flatus. Bleeding is light. Pain well-controlled though she does not like how she feels with oxycodone. Exam Vital Signs (past 8 hours): Oxygen Delivery Method Room Air Narrative Exam Narrative: General: Awake and alert, no acute distress. HEENT: NCAT, EOMI, moist oral mucosa CV: Regular rate and rhythm, no murmurs, rubs or gallops Lungs: CTAB, no wheezes, rales, or rhonchi Abdomen: Aquacel dressing intact without drainage. Soft, nontender; bowel tones active; uterus firm 1 cm at umbilicus Extremities: Warm, no edema bilaterally Objective Labs Result Diagrams: 08/30/22 03:40 Assessment & Plan Assessment and Plan (1) 40 weeks gestation of : Status: Acute (2) S/P : Status: Acute (3) intolerance to labor, delivered, current hospitalization: Status: Acute Plan day: 1 plan OB: routine postop care Comments: 36 year old after primary for intolerance of labor. She is doing well and well. Encouraged ambulation today. Anticipate discharge home tomorrow. Time Spent With Patient Time: Total time spent is greater than 50% in coordination of care (as documented) at patient's floor/unit and/or counseling patient: Time with patient: 15-24 minutes
[2022-08-31 13:57] LABS: Add Manual Diff / Slide Review NO; Basophils Absolute Auto 0 /uL (0-100); Basophils Percent Auto 0.3 % (0-2); Eosinophils Absolute Auto 0 /uL (0-450); Eosinophils Percent Auto 0.1 % (2-4); Hematocrit 23.5 % (36-46); Hemoglobin 7.9 g/dL (12.0-16.0); Lymphocytes Absolute Auto 2900 /uL (1100-4500); Lymphocytes Percent Auto 19.1 % (25-40); Mean Corpuscular HGB Conc 33.7 % (30-36); Mean Corpuscular Hemoglobin 32.8 PG (26-34); Mean Corpuscular Volume 97.4 fL (80-100); Monocytes Absolute Auto 800 /uL (0-900); Monocytes Percent Auto 5.3 % (3-14); Neutrophils Absolute Auto 11200 /uL (1500-7000); Neutrophils Percent Auto 75.2 % (50-75); Platelet Count 160 X10^3/uL (150-400); Red Blood Cell Count 2.41 X10^6/uL (4.0-5.2); Red Cell Distribution Width 13.2 % (11.6-14.8)
--- NOTE | 2022-08-31 14:19 | PM.OBPN.1 ---
Subjective - OB Subjective Patient comments: pain well controlled, tolerating diet, flatus present and other (sometimes woozy when stands up quick) baby status: doing well and nursing well feeding status: exclusively breast feeding Date Patient Seen: 08/31/22 Time Patient Seen: 13:20 Exam Vital Signs (past 8 hours): Oxygen Delivery Method Room Air Narrative Exam Narrative: General: Well-appearing female Skin, mucus membranes: Without pallor Abdomen: Soft, nondistended, nontender except expected tenderness near dressing. no skin erythema. Dressing is dry, intact. Extremities: No pedal edema Objective Labs Result Diagrams: 08/31/22 13:40 Labs: Laboratory Results - last 24 hr 08/31/22 13:40 WBC 15.0 H RBC 2.41 L Hgb 7.9 L Hct 23.5 L MCV 97.4 MCH 32.8 MCHC 33.7 RDW 13.2 Plt Count 160 Neut % (Auto) 75.2 H Lymph % (Auto) 19.[address] [place] % (Auto) 5.3 Eos % (Auto) 0.1 L Baso % (Auto) 0.3 Neut # (Auto) 34914 H Lymph # (Auto) 2900 [place] # (Auto) 800 Eos # (Auto) 0 Baso # (Auto) 0 Assessment & Plan Assessment and Plan (1) 40 weeks gestation of : Status: Acute (2) S/P : Start date: 08/30/22 Problem details: Status: Acute (3) intolerance to labor, delivered, current hospitalization: Status: Acute Plan plan OB: routine postop care and other Comments: s/p stat C section under general anesthesia for nonreassuring FHR pattern. POD 1, doing well. She does note occasionally feeling lightheaded with quick standing otherwise ambulating fine and showered without a problem. I discussed Likely due to lower blood count today, anemia with patient already with a low normal BP. - Called lab to do her CBC, not drawn this a.m.. I discussed with patient higher than normal blood loss with the due to atony of lower uterus, risk factors of general anesthesia, large baby and multiparous. She did respond to treatment in closure of the uterus. I discussed suspect blood count is somewhat lower however. Gave her precautions for sitting at edge of bed for a minute prior to standing, and 1st low walking. lab did return with hemoglobin 7.9. Will discussed iron infusion with her prior to discharge and continue on iron at home. Having normal postoperative course otherwise. Time Spent With Patient Time: Total time spent is greater than 50% in coordination of care (as documented) at patient's floor/unit and/or counseling patient: Time with patient: 15-24 minutes
[2022-09-01] MEDS: ACETAMINOPHEN 325 MG TABLET 650 MG PO ×2 (05:10→11:06)
[2022-09-01] MEDS: DOCUSATE 100 MG CAPSULE 200 MG PO (09:15)
--- NOTE | 2022-09-01 09:42 | PM.OBDS.1 ---
Discharge Providers Provider Date of admission: 08/30/22 02:40 Discharge Date: 09/01/22 Primary care physician: Serenity Becerra DO Consults: 08/30/22 08:49 Consult to Student Support Counselor Routine Comment: Discharge provider: Serenity Becerra DO Summary Hospital Course Date Patient Seen: 09/01/22 Time Patient Seen: 09:15 Diagnoses: 40 weeks of S/p primary section intolerance of labor Acute blood loss anemia Hospital Course: Patient is a 36-year-old after primary section for nonreassuring heart tones at 40 weeks and 5 days . She presented in active labor and received an epidural. She was taken for primary section due to deep recurrent variable decelerations. Attempts were made at pushing however there was an anterior lip of cervix which would not reduce with pushing. was performed under general anesthesia due to inadequate anesthesia with the epidural. She was delivered of a female infant with Apgars of 6 and 8. was found to be occiput transverse with a loop of cord over the shoulder as the reason for the variable decelerations. course has been uncomplicated. She did have acute blood loss anemia from surgery not requiring blood transfusion though she was intermittently dizzy with ambulation. For this, iron infusion was recommended by Dr. Flores. She will receive iron prior to discharge home today. Vital signs are stable. Vaginal bleeding is light. Pain controlled with Tylenol and minimal oxycodone. She is tolerating a diet and passing flatus. is going well without concerns in the . She will follow-up in clinic in several days for Aquacel dressing removal. Advised patient to call for fevers, severe pain or bleeding through more than a pad an hour. Peripartum Data Infant Delivery Method: Emergency Section complications: none 1: Gender: Female Disposition of : home Discharge Diagnosis (1) 40 weeks gestation of : Status: Acute (2) S/P : Status: Acute Problem Details: (3) intolerance to labor, delivered, current hospitalization: Status: Acute Status at Discharge Cognitive/behavioral status at discharge: at baseline, oriented Functional status at discharge: independent ambulation Overall status at discharge: patient is progressing back to baseline Time Spent with Patient Time attestation: Total time spent providing and/or coordinating discharge services: Time spent: Less than 30 minutes Objective Labs Result Diagrams: 08/31/22 13:40 Labs: Laboratory Results - last 24 hr 08/31/22 13:40 WBC 15.0 H RBC 2.41 L Hgb 7.9 L Hct 23.5 L MCV 97.4 MCH 32.8 MCHC 33.7 RDW 13.2 Plt Count 160 Neut % (Auto) 75.2 H Lymph % (Auto) 19.1 L [place] % (Auto) 5.3 Eos % (Auto) 0.1 L Baso % (Auto) 0.3 Neut # (Auto) 84231 H Lymph # (Auto) 2900 [place] # (Auto) 800 Eos # (Auto) 0 Baso # (Auto) 0 Exam Vital Signs (past 8 hours): Oxygen Delivery Method Room Air Temperature 97.6? blood pressure 106/65 heart rate 65 Narrative Exam Narrative: General: Awake and alert, no acute distress. HEENT: NCAT, EOMI, moist oral mucosa CV: Regular rate and rhythm, no murmurs, rubs or gallops Lungs: CTAB, no wheezes, rales, or rhonchi Abdomen:? Aquacel dressing intact without drainage.? Soft, nontender; bowel tones active; uterus firm at umbilicus. Extremities: Warm, no edema bilaterally Discharge Plan Discharge Plan Patient Disposition: Home Discharge orders & Medications Prescriptions: New docusate sodium 100 mg Capsule 200 mg PO DAILY Qty: 30 0RF oxycodone 5 mg Tablet 5 mg PO Q4H PRN (Reason: Pain, Moderate (4-6)) Qty: 10 0RF ferrous sulfate 325 mg (65 mg iron) Tablet 325 mg PO DAILY Qty: 30 0RF ibuprofen 600 mg Tablet 600 mg PO Q6HR PRN (Reason: Fever/Mild Pain (1-3)) Qty: 30 0RF Continued (DME) double electric breast pump and supplies See Rx Instructions .ROUTE .MEDSUPPLY Qty: 1 0RF Rx Instructions: As directed omega 7-btb-woz-fish oil [Fish Oil] 60-90-500 mg capsule 1 cap PO DAILY PNV cmb#95-ferrous fumarate-FA [] 28 mg iron- 800 mcg Tablet 1 tab PO QPM Follow up/Referrals: Serenity Becerra DO [Primary Care Provider] - 09/05/22 10:00 am Visit Report/Discharge Packet Visit Report Forms: Patient Portal/API, Stroke Signs & Symptoms Discharge Data Primary Care Provider: Serenity Becerra
[2022-09-01 10:06] VITALS: BP 106/65; PULSE 65; RESP 16; TEMP 36.4
[2022-09-01] MEDS: IBUPROFEN 600 MG TABLET PO (10:16)
[2022-09-01] MEDS: IRON SUCROSE 200 MG in SODIUM CHLORIDE 0.9% 100 ML 220 MG IV (10:16)
== END 2022-09-01 11:35 | disposition home or self-care (01) | DRG 787 ==
PROVIDERS: Admitting Provider Obstetrics & Gynecology; PCP Family Medicine; Referring Provider Obstetrics & Gynecology; Visit Provider Obstetrics & Gynecology
PROC: 10D00Z1 Extraction of Products of Conception, Low, Open Approach (ICD-10-PCS; CPT 59514; principal; 2022-08-30 07:45)
DX: O76 Abnormality in fetal heart rate and rhythm complicating labor and delivery (principal); D62 Acute posthemorrhagic anemia; Z3A.40 40 weeks gestation of pregnancy; Z37.0 Single live birth; O99.824 Streptococcus B carrier state complicating childbirth; O90.81 Anemia of the puerperium; O64.8XX0 Obstructed labor due to other malposition and malpresentation, not applicable or unspecified; Z20.822 Contact with and (suspected) exposure to COVID-19
CPT/HCPCS: 01967; 01968; 36415; 59050; 59510; 59514; 85025; 86850; 86900; 86901; 87635; C9803; G0379; J0131; J0330; J0690; J1100; J1756; J1885; J2274; J2405; J2704; J3010

== ENCOUNTER → 2022-10-11 14:56 | Outpatient (CLI) | payer OTHER, SELFPAY ==
[2022-10-11 15:25] LABS: Add Manual Diff / Slide Review NO; Basophils Absolute Auto 100 /uL (0-100); Basophils Percent Auto 0.5 % (0-2); Eosinophils Absolute Auto 300 /uL (0-450); Eosinophils Percent Auto 2.6 % (2-4); Hematocrit 37.6 % (36-46); Hemoglobin 12.6 g/dL (12.0-16.0); Lymphocytes Absolute Auto 3400 /uL (1100-4500); Lymphocytes Percent Auto 33.6 % (25-40); Mean Corpuscular HGB Conc 33.5 % (30-36); Mean Corpuscular Hemoglobin 31.1 PG (26-34); Mean Corpuscular Volume 92.7 fL (80-100); Monocytes Absolute Auto 400 /uL (0-900); Monocytes Percent Auto 4.3 % (3-14); Neutrophils Absolute Auto 5900 /uL (1500-7000); Platelet Count 297 X10^3/uL (150-400); Red Blood Cell Count 4.05 X10^6/uL (4.0-5.2); Red Cell Distribution Width 12.9 % (11.6-14.8); White Blood Cell Count 10.1 X10^3/uL (4.5-11.0)
== END ==
PROVIDERS: PCP Family Medicine; Referring Provider Family Medicine; Visit Provider Family Medicine
DX: D64.9 Anemia, unspecified (principal)
CPT/HCPCS: 36415; 85025

== ENCOUNTER → 2023-06-20 13:56 | Outpatient (CLI) | payer OTHER, SELFPAY ==
[2023-06-20 14:14] LABS: Add Manual Diff / Slide Review NO; Basophils Absolute Auto 100 /uL (0-100); Basophils Percent Auto 0.7 % (0-2); Eosinophils Absolute Auto 100 /uL (0-450); Eosinophils Percent Auto 1.6 % (2-4); Hematocrit 40.1 % (36-46); Hemoglobin 13.7 g/dL (12.0-16.0); Lymphocytes Absolute Auto 3100 /uL (1100-4500); Lymphocytes Percent Auto 36.6 % (25-40); Mean Corpuscular HGB Conc 34.1 % (30-36); Mean Corpuscular Hemoglobin 31.3 PG (26-34); Monocytes Absolute Auto 400 /uL (0-900); Monocytes Percent Auto 5.3 % (3-14); Neutrophils Absolute Auto 4700 /uL (1500-7000); Neutrophils Percent Auto 55.8 % (50-75); Platelet Count 226 X10^3/uL (150-400); Red Blood Cell Count 4.36 X10^6/uL (4.0-5.2); White Blood Cell Count 8.3 X10^3/uL (4.5-11.0)
[2023-06-20 19:49] LABS: Alanine Aminotransferase 16 IU/L (<35); Albumin 4.6 g/dL (3.5-5.0); Albumin Globulin Ratio 1.7 (1.0-2.8); Alkaline Phosphatase 56 U/L (38-126); Aspartate Aminotransferase 24 IU/L (14-36); BUN Creatinine Ratio 19.8 (6-22); Bilirubin Total 0.6 mg/dL (0.2-1.3); Blood Urea Nitrogen 17 mg/dL (7-17); Calcium 9.1 mg/dL (8.4-10.2); Carbon Dioxide 26 mmol/L (22-32); Chloride 106 mmol/L (98-107); Cholesterol 167 mg/dL (140-199); Estimated Glomerular Filt Rate > 60 mL/min (>60); Globulin 2.7 g/dL (1.7-4.1); Glucose 83 mg/dL (70-100); HDL Cholesterol 68 mg/dL (40-60); HEMOLYSIS < 15 (0-50); LDL Cholesterol Calculated 80 mg/dL (<100); Potassium 4.1 mmol/L (3.4-5.1); Sodium 140 mmol/L (137-145); Total Protein 7.3 g/dL (6.3-8.2); Triglycerides 93 mg/dL (35-150)
[2023-06-20 20:19] LABS: TSH w/ Reflex to FT4 0.66 uIU/mL (0.47-4.68)
[2023-06-20 20:22] LABS: Ferritin 35 ng/mL (6-137)
[2023-06-20 20:36] LABS: Vitamin B12 658 pg/mL (239-931)
== END ==
PROVIDERS: PCP Family Medicine; Referring Provider Family Medicine; Visit Provider Family Medicine
DX: Z00.00 Encounter for general adult medical examination without abnormal findings (principal); R53.82 Chronic fatigue, unspecified
CPT/HCPCS: 80053; 80061; 82607; 82728; 83036; 84443; 85025

== ENCOUNTER → 2023-12-05 16:07 | Outpatient (CLI) | payer OTHER, SELFPAY ==
[2023-12-06 13:34] LABS: Varicella IgG Antibody 1029 index (Immune >165)
[2023-12-06 15:46] LABS: Rubella Antibody IgG 31.3 IU/mL (>15)
[2023-12-08 19:06] LABS: Diptheria Antitoxoid B 0.87 IU/mL (<0.10)
[2023-12-09 08:46] LABS: Hepatitis Be Antibody Negative (Negative)
== END ==
LOC: LAB 16:08
PROVIDERS: PCP Family Medicine; Referring Provider Family Medicine; Visit Provider Family Medicine
DX: Z01.84 Encounter for antibody response examination (principal)
CPT/HCPCS: 36415; 86317; 86707; 86735; 86762; 86765; 86787

== ENCOUNTER → 2024-04-06 09:31 | Outpatient (CLI) | payer OTHER, SELFPAY | LOC: LAB 09:31 | PROVIDERS: PCP Family Medicine; Referring Provider Family Medicine; Visit Provider Family Medicine | DX: Z11.1 Encounter for screening for respiratory tuberculosis (principal) | CPT/HCPCS: 36415; 86480 ==

== ENCOUNTER → 2025-04-16 10:32 | Outpatient (CLI) | payer OTHER, SELFPAY ==
[2025-04-16 11:55] LABS: Add Manual Diff / Slide Review NO; Basophils Absolute Auto 0 /uL (0-100); Basophils Percent Auto 0.6 % (0-2); Eosinophils Absolute Auto 100 /uL (0-450); Hematocrit 41.9 % (36-46); Hemoglobin 14.1 g/dL (12.0-16.0); Lymphocytes Absolute Auto 3200 /uL (1100-4500); Lymphocytes Percent Auto 50.9 % (25-40); Mean Corpuscular HGB Conc 33.5 % (30-36); Mean Corpuscular Hemoglobin 31.7 PG (26-34); Mean Corpuscular Volume 94.4 fL (80-100); Monocytes Absolute Auto 300 /uL (0-900); Monocytes Percent Auto 5.2 % (3-14); Neutrophils Absolute Auto 2600 /uL (1500-7000); Neutrophils Percent Auto 42.3 % (50-75); Platelet Count 206 X10^3/uL (150-400); Red Blood Cell Count 4.45 X10^6/uL (4.0-5.2); Red Cell Distribution Width 13.2 % (11.6-14.8); White Blood Cell Count 6.2 X10^3/uL (4.5-11.0)
== END ==
PROVIDERS: PCP Family Medicine; Referring Provider Family Medicine; Visit Provider Family Medicine
DX: Z13.0 Encounter for screening for diseases of the blood and blood-forming organs and certain disorders involving the immune mechanism (principal)
CPT/HCPCS: 36415; 85025

== ENCOUNTER 2025-06-03 05:50 | Emergency (ER) | payer OTHER, SELFPAY ==
[2025-06-03 06:12] VITALS: BP 119/63; PULSE 79; RESP 16; TEMP 37; O2SAT 97; BMI 24.1
--- NOTE | 2025-06-03 06:12 | ED.GENADULT ---
HPI - General Adult General Stated complaint: strep throat Time Seen by Provider: 06/03/25 06:08 History of Present Illness HPI narrative: Patient is a 39-year-old female without any significant past medical history comes into the ED from home for evaluation of persistent sore throat, she states that she was diagnosed with strep pharyngitis week ago, states that she completed her course of antibiotics with azithromycin however she states that she is having recurrent/persistent sore throat, she states that she was informed by her doctor who initially prescribed the medication that she might need additional antibiotics therefore came into the ED for further evaluation treatment. Patient just complaining of sore throat denies any other symptoms patient is speaking full sentences protecting airway no voice changes no stridor no trismus. Related Data Home Medications ?Medication ?Instructions ?Recorded ?Confirmed vit no.95-ferrous 1 tab PO QPM 06/25/18 04/28/24 fumarate 28 mg-folic acid 800 mcg tablet () fish bqr-[id number]-6-vit C-vit E PO DAILY 06/20/23 04/28/24 Previous Rx's ?Medication ?Instructions ?Recorded double electric breast pump and #1 ea 08/02/22 supplies ferrous sulfate 325 mg (65 mg 325 mg PO DAILY #30 tabs 09/01/22 iron) tablet clindamycin HCl 300 mg capsule 300 mg PO TID 10 days #30 caps 06/03/25 Allergies Allergy/AdvReac Type Severity Reaction Status Date / Time nickel Allergy Severe Rash Verified 06/03/25 06:12 amoxicillin Allergy Verified 06/03/25 06:12 Review of Systems Review of Systems Narrative: General: Denies fever, chills, weight loss HEENT: Positive sore throat Denies headache, eye drainage, eye irritation, head trauma, voice change Cardiovascular: Denies any chest pain, palpitations, tachycardia Respiratory: Denies any shortness of breath, cough, wheeze, stridor GI/: Denies any abdominal pain, nausea, vomiting, diarrhea, bright red blood per rectum, melanotic stools, urinary frequency, urinary retention, dysuria, hematuria MSK: Denies any joint pain, muscle pains, swelling Skin: Denies any rashes, lesions, discoloration Neuro: Denies any headache, lightheadedness, dizziness, fainting, weakness Psych: Denies SI/HI Patient History Medical History (Updated 06/03/25 @ 06:16 by Desean Taveras DO) PTSD (post-traumatic stress disorder) Depression Anxiety Carpal tunnel syndrome Irritable bowel syndrome OCD (obsessive compulsive disorder) (spontaneous vaginal delivery) Muscle strain of left hip Neoplasm Back pain at L4-L5 level HPV (human papilloma virus) anogenital infection Eczema Impingement syndrome of both shoulders GERD (gastroesophageal reflux disease) Surgical History (Updated 10/11/22 @ 13:53 by Serenity Becerra DO) S/P [place] teeth removed Family History Father Aortic valve disorder Cardiovascular disease Hypertension Myocardial infarction Stroke Grandmother Diabetes mellitus Breast cancer Family/Other Breast cancer Grandfather Alcoholic Pacemaker Arrhythmia Hyperlipidemia Hypertension Grandmother Dementia Social History marital status: number of children: 2 household members: spouse and children lives independently: Yes housing: house pets and animals: Yes (Dogs, aware Toxo with gardening) education level: college occupational status: unemployed current occupational exposures/hazards: No special edie needs: No seatbelt use: always water heater temp set < 120 deg: Yes working smoke detector in home: Yes fire extinguisher in home: Yes carbon monox detector in home: Yes firearms in home: Yes firearms unloaded and locked: Yes do you feel safe at home: Yes Tobacco: How many years used: 3 second hand exposure: No alcohol intake: former substance use type: does not use and former substance user during the past year weight has: remained stable well-balanced diet: daily or most days daily servings fruits/ve-4 caffeine: No (limit 200 mg a day if starts) Type(s) of exercise: regular exercise frequency: 5-6 times per week alcohol intake frequency: other Exam Narrative Exam Narrative: General: Cooperative, well-developed, not in acute distress HEENT: Normocephalic, atraumatic, PERRLA, normal sclera, eyelids normal, patient with mild exudates noted to bilateral tonsils but uvula is midline patient is speaking in full sentences protecting airway no voice changes no stridor no trismus Neck: Active full range of motion, atraumatic Chest: Normal to inspection, negative crepitus, no overlying erythema ecchymosis Respiratory: Normal respiratory effort, not in acute respiratory distress, clear to auscultation bilaterally negative cough, wheeze, tachypnea, rhonchi, rales Cardiology: Regular rate rhythm negative gallop, murmur, rubs GI/: No tenderness to palpation, soft, non rigid, normal to inspection, exam deferred MSK: Full active range of motion in all 4 extremities, atraumatic, no tenderness to palpation of any bony prominences Skin: No rashes or lesions noted Neuro: Alert awake oriented x3, moves all 4 extremities spontaneously, cranial nerves intact, able to answer all questions appropriately follows commands appropriately Psych: Cooperative, negative suicidal or homicidal ideations Course Orders Ordered: Discontinued Medications Clindamycin HCl (Clindamycin 150 Mg Capsule) 300 mg PO NOW ONE Stop: 06/03/25 06:12 Dexamethasone (Dexamethasone 10 Mg/Ml Vial) 10 mg IM NOW ONE Stop: 06/03/25 06:12 Ketorolac Tromethamine (Ketorolac 30 Mg/Ml Vial) 15 mg IM NOW ONE Stop: 06/03/25 06:12 Medical Decision Making Differential Diagnosis Differential Diagnosis: Viral pharyngitis, strep pharyngitis MDM Narrative Medical decision making narrative: Patient is a 39-year-old female without any significant past medical history comes into the ED for persistent sore throat, she states that she was diagnosed with a bacterial pharyngitis a week ago was started on azithromycin due to her history of penicillin allergy, she states that patient initially had some improvement sentences but is now having persistent/worsening sore throat, on exam uvula is midline no voice change some started on a trismus however exudates noted to bilateral tonsils. She states that she was told that she might need additional antibiotics which is what brought him into the ED today. Patient will be discharged home on clindamycin, was given dose of IM Toradol and Decadron for symptomatic relief. Patient was given strict return precautions, Patient verbalized understanding of this and agrees to being discharged home with outpatient follow up Discharge Plan Departure Patient Disposition: Home Clinical Impression: Sore throat Instructions: DI for Pharyngitis/Tonsillopharyngitis -- Adult Activity Restrictions/Additional Instructions: Please follow up with your primary care doctor Please read the discharge instructions sheet carefully and bring all papers to all doctor follow-up visits, as it may contain information that your doctor may want to see. Disease processes change and evolve, if your symptoms worsen or if you develop any new symptoms that are concerning to you please return for evaluation. Your evaluation today does not show any evidence of any life-threatening/serious illnesses requiring admission to the hospital or surgery. Please follow-up with your doctor for re-evaluation in approximately 1 day. Seek immediate medical attention for any worrisome symptoms. *If you do not have a primary care provider please contact the [facility] Resource line at [phone]. They will ask some questions about your medical history and help get you set up with a doctor in the community. Prescriptions: New clindamycin HCl 300 mg capsule 300 mg PO TID 10 Days Qty: 30 0RF No Action (DME) double electric breast pump and supplies See Rx Instructions .ROUTE .MEDSUPPLY Qty: 1 0RF Rx Instructions: As directed fish lpa-yamtz-9-vit C-vit E PO DAILY PNV cmb#95-ferrous fumarate-FA [] 28 mg iron- 800 mcg Tablet 1 tab PO QPM ferrous sulfate 325 mg (65 mg iron) Tablet 325 mg PO DAILY Qty: 30 0RF Referrals: Michell Preston DO [Primary Care Provider, Family Practice] Stand Alone Forms: Patient Portal/API
[2025-06-03] MEDS: CLINDAMYCIN 150 MG CAPSULE 300 MG PO (06:21)
== END 2025-06-03 06:30 | disposition home or self-care (01) ==
PROVIDERS: Emergency Provider Student in an Organized Health Care Education/Training Program; PCP Family Medicine
DX: J02.9 Acute pharyngitis, unspecified (principal); Z86.19 Personal history of other infectious and parasitic diseases; Z88.0 Allergy status to penicillin
CPT/HCPCS: 99283; J1100; J1885